=== PATIENT | female | born 1955 | race Caucasian/White ===

== ENCOUNTER 2017-01-30 05:30 | Inpatient (IN) | payer OTHER ==
[2017-01-30] VITALS (13 sets, daily range): BP systolic 98–127; BP diastolic 64–95; PULSE 64–101; RESP 10–20; O2SAT 93–100
[~2017-01-30] VITALS: Ht 149.9 cm; Wt 80.5 kg
[2017-01-30] MEDS: Lactated Ringer's 1,000 ML IV SCH ×6 (05:00→21:29)
[~2017-01-30 05:30] MED LIST: ADV100INH IH; ALBU8.5H2 INHALATION; AZU500 PO; CYCL10TA9 PO; CYCL1DRO OP; HYDR50TA3 PO; MAGN250T29 PO; METF500T4 PO; OXYB5TAB10 PO; POLY17PO6 PO; POTA99TA21 PO; TRAM50TA2 PO
[2017-01-30] MEDS ORDERED: Vancomycin 1,000mg/200 mL NS IV ONE (05:46)
[2017-01-30] MEDS ORDERED: CeFAZolin Inj 2 gm / 50mL D5W IV ONE (05:47)
[2017-01-30] MEDS ORDERED: tylenol PO (05:59)
[2017-01-30] MEDS ORDERED: CeFAZolin Inj 2 GM in Dextrose 5%-Pha MIX 50 ML IV SCH (06:00)
[2017-01-30] MEDS ORDERED: Bupivacaine Liposome 1.3% 20 mL Inj INFILTRATE ONE ×2 (06:00→08:16)
[2017-01-30] MEDS ORDERED: Vancomycin Inj 1,000 MG in IV Premix 1 EACH IV ONE (06:00)
[2017-01-30] MEDS ORDERED: Acetaminophen IV 1,000 MG in IV Premix 1 EACH IV ONE (06:00)
[2017-01-30] MEDS ORDERED: [UNRECOGNIZED DRUG - OTHER] PO (06:52)
[2017-01-30] MEDS ORDERED: NIAC500T7 PO (06:52)
[2017-01-30] MEDS ORDERED: GABA-502 PO (06:52)
[2017-01-30] MEDS ORDERED: CALC-140 PO (06:52)
[2017-01-30] MEDS ORDERED: valcyclovir PO (06:52)
[2017-01-30] MEDS ORDERED: MELO-253 PO (06:52)
[2017-01-30] MEDS ORDERED: OMEP40CA36 PO (06:52)
[2017-01-30] MEDS ORDERED: MULT-1018 PO (06:52)
[2017-01-30] MEDS ORDERED: LORA5TAB8 PO (06:52)
--- NOTE | 2017-01-30 07:17 | PCM.HPANE ---
Patient Data Surgeon Admitting Provider: Attending Provider:Jimenez Fitzgerald MD Primary Care Physician:Brissa Nicholson PA-C Other Provider:Killian Kearns Anesthesia Reason for Visit Right Hip Osteoarthritis RIGHT HIP OSTEOARTHRITIS Ht/WT & BMI Height (Feet): 4 Height (Inches): 11.00 Weight (Kilograms): 76.0 Body Mass Index 33.00 Allergies Coded Allergies: No Known Allergies (Unverified , 01/27/17) Past Anesthesia History Anesthesia History: Denies:: Anesthesia Reactions Diabetes History Hx Diabetes?: Yes Type of Diabetes: Type II Glycemic Control: Oral Medication Current Bedside Blood Glucose: 86 Medications Hypertension Medication: No Home Meds Incl Beta Martir: No Reported Medications Meloxicam 15 Mg Ycwikj09 Mg PO DAILY 30 Days Ref 0 01/30/17 [maeng Da] No Conflict Check PO prn 01/30/17 Multivitamin (Multi Vitamin Daily)1 Each Tablet1 Each PO DAILY 30 Days Ref 0 01/30/17 Niacin 500 Mg Jtlgcp345 Mg PO DAILY 30 Days 01/30/17 Loratadine ODT (Claritin ODT)5 Mg Tablet5 Mg PO DAILY 01/30/17 Calcium Carbonate/Vitamin D3 (Calcium + Vitamin D Tablet)1 Each Tablet1 Each PO BID 01/30/17 [valcyclovir] No Conflict Check1,000 Mg PO prn 01/30/17 Omeprazole 40 Mg Capsule.dr40 Mg PO DAILY Ref 0 01/30/17 Gabapentin 300 Mg Kbaefgo120 Mg PO HS Ref 0 01/30/17 [tylenol] No Conflict Check1,000 Mg PO TID 01/30/17 Potassium Gluconate (Potassium)99 Mg Tablet2 Tab PO BID 01/27/17 Magnesium Oxide (Magnesium)250 Mg Codvzh356 Mg PO BID 01/27/17 Cyclosporine (Restasis)1 Each Droperette1 Each OP DAILY 01/27/17 Polyethylene Glycol 3350 (Miralax)17 Gm Powd.pack17 Gm PO DAILY 01/27/17 Tramadol 50 Mg Sipttc03 Mg PO Q6H PRN For Pain Ref 0 01/26/17 Sulfasalazine 500 Mg Ahgbus906 Mg PO QID 30 Days Ref 0 01/26/17 Albuterol HFA (Proair HFA)8.5 Gm Hfa.aer.ad2 Puffs INHALATION Q4H PRN For Shortness of Breath #1 INHALER 01/26/17 Oxybutynin Chloride 5 Mg Tablet5 Mg PO BID Ref 0 01/26/17 Metformin 500 Mg Hfwczp820 Mg PO BID Ref 0 01/26/17 Hydrochlorothiazide 50 Mg Ucfgjt87 Mg PO DAILY 30 Days Ref 0 01/26/17 Cyclobenzaprine 10 Mg Ycufmr72 Mg PO TID PRN Spasm 01/26/17 Fluticasone/Salmeterol (Advair 100-50 Diskus)60 Puffs/Inh Disk1 Puffs IH BID #1 DISK Ref 0 01/26/17 History History of ENT Problems?: Yes Teeth Condition: Broken Teeth Other HEENT Pertinent History: pt reports that she has broken corner of her tooth off- Cardiovascular History: Denies:: AICD Abdominal Aortic Aneurism Atrial Fibrillation Heart Murmur Hypertension Irregular Heartbeat Pacemaker Hx of Respiratory Problem?: Yes Respiratory History: Positive for:: Asthma Use of Inhalers / NEBS Denies:: Oxygen Administration Use of C-PAP Machine Hx Neurologic Problems?: No Neurological History: Denies:: CVA Multiple Sclerosis Parkinson's Disease Seizures Hx of GI Problems?: Yes Gastrointestinal History: Positive for:: Gastroesphageal Reflux Hx of Problems?: No Hx Musculoskeletal Problems?: Yes Musculoskeletal History: Positive for:: Back Injury (hx of cervical and lumbar fusions) Fibromyalgia Hx of Psycho/Social Problems?: No Hx Surgeries?: Yes (bunion, cervical fusion, lumbar fusion) Hx Any Other Health Problems?: Yes Other History: Denies:: Cancer Thyroid Disease Hx Diabetes: YesBedside Blood Glucose: 86 Hx Alcohol Use: NoAlcoholic Drinks Per Day: rarelyHx Substance Use: NoHave You Smoked inLast 12 mo: No Stop/Bang Treated for Sleep Apnea?: No Do You Have a CPAP Machine?: No P-Blood Pressure: treated: Yes B- Body Mass Index > 35 kg/m2: No A- Age over 50: Yes N- Neck Large Circumference: No G- Gender Male: No DANNY Risk Assessment: Low Risk, <3 Yes Risk Assessment Category Category 1A: Patient has history of documented sleep apnea, and HAS NOT received any narcotic, sedative or anesthesia administration during this stay. Category 1B: Patient has history of documented sleep apnea, and HAS received any narcotic , sedative or anesthesia administration during this stay Category 2: Patient has SUSPECTED Obstructive Sleep Apnea, and HAS received any narcotic , sedative or anesthesia administration during this stay. Category 3: Patient has SUSPECTED Obstructive Sleep Apnea and HAS NOT received narcotic, sedative or anesthesia administration during this stay. Category 4: Outpatient in Procedural Areas with known sleep apnea or who screen positive for High Risk via the STOP/BANG questionnaire. Exam Exam Vital Signs Vital Signs Date Time Temp Pulse Resp B/P Pulse Ox O2 Delivery O2 Flow Rate FiO2 01/30/17 06:15 36.3 68 18 127/74 96 Room Air General Appearance: Oriented X3 HEENT/AIRWAY: MP 2 Lungs: Normal Air Movement Heart: Regular Rate/Rhythm Meds/Labs/Diagnostics Admission Meds Current Medications Lactated Ringer's (Lr) 1,000 ml @ 120 mls/hr Q8H20M IV Last administered on t 05:35; Start 01/30/17 at 05:00; Stop 01/30/17 at 13:19 Bedside Blood Glucose: 86 Plan Impression Patient chart reviewed, patient interviewed and anesthestic plan with risks, benefits, and alternatives discussed, and informed consent obtained. NPO Status: 10PM ASA Physical Status: ASA2 Mod Systemic Disease Anesthetic Plan: GA Bene/Risks/Altern/Consents: Yes HP Complete Prior to Induction: Yes Amadou Elkins MD Jan 30, 2017 07:17
[2017-01-30] MEDS ORDERED: Bacitracin 50,000 unit Inj IRRIGATION ONE (08:17)
[2017-01-30] MEDS ORDERED: diphenhydrAMINE 25 mg Capsule PO PRN (10:20)
[2017-01-30] MEDS ORDERED: Polyethylene Glycol (PEG) 17 Gm Powder PO PRN (10:20)
[2017-01-30] MEDS ORDERED: Magnesium Hydroxide 10 mL Oral Concentration PO PRN (10:20)
[2017-01-30] MEDS ORDERED: MetoCLOpramide 5 mg/mL 2 mL Inj IVPUSH PRN ×2 (10:20→10:30)
[2017-01-30] MEDS ORDERED: Sodium Biphos-Phos 133 mL Enema RECTAL PRN (10:20)
[2017-01-30] MEDS ORDERED: Ondansetron 2 mg/mL 2 mL Inj IVPUSH PRN ×2 (10:20→10:30)
[2017-01-30] MEDS ORDERED: Ketorolac 15 mg/mL Inj IVPUSH PRN (10:20)
[2017-01-30] MEDS ORDERED: Dexamethasone 4 mg/mL Inj IVPUSH PRN (10:30)
[2017-01-30] MEDS ORDERED: Lactated Ringer's 500 ML IV PRN (10:30)
[2017-01-30] MEDS ORDERED: HYDROmorphone 1 mg/mL Inj IVPUSH PRN (10:30)
[2017-01-30] MEDS ORDERED: Lactated Ringer's 1,000 ML IV SCH (10:30)
[2017-01-30] MEDS ORDERED: EPHEDrine Sulfate 50 mg/mL Inj IVPUSH PRN (10:30)
[2017-01-30] MEDS ORDERED: Phenylephrine 10,000 mCg/mL Inj IVPUSH PRN (10:30)
--- NOTE | 2017-01-30 10:37 | PCM.ORTHOP ---
Orthopedic Operative Report Date of Service: Jan 30, 2017 Pre Operative Diagnosis Right hip degenerative joint disease Post Operative Diagnosis Right hip degenerative joint disease Procedure Right total hip arthroplasty Surgeon Surgeon: Jimenez Fitzgerald MD Assistants: Vianey Thakur Indication for Procedure Right hip arthritis, stage IV Findings Grade 4 degenerative disease of the right hip Details of Procedure Hardware Used:De P[employer] Synthes Trilock Cup pinnacle 54mm cup 36X54 neutral liner Stem4 36+5 metal head 30mm cup screw Indications: Finesse Matos is a 61-year-old female who presents with DJD of the right hip. We discussed surgical risks including, but not limited to, bleeding, infection, damage to adjacent structures, need for further procedures , failure to heal and/or relieve pain, HW failure, loosening, and/or wear, change in limb length and/or alignment, fracture, dislocation, decreased strength, sensation and/or ROM, adverse reaction to implants and/or medicines, DVT, PE, IN, stroke, GI bleed, organ failure, loss or limb and/or life. Patient wished to proceed with surgery regardless of risks as stated. Procedure in Detail: The patient was identified in the holding area. The operative site was confirmed with the patient while awake and the right hip was marked. The patient was taken back to the operating room and placed on the operating table in the supine position. Time out was performed to confirm patient identity, operative procedure and operative site, and allergies. General anesthesia was administered by anesthesia personal. Patient was then positioned in the lateral decubitus position. All bony prominences were well padded. The right lower leg was prepped. Prophylactic antibiotics were administered. 1000mg of IV transexamic acid was given preop as well as prior to closure. The standard posterolateral incision was made over the posterior 1/3 femur and greater trochanter. This was brought down to the fascial layer. Once the fascial layer and gluteus maximum were incised, the bursa was taken down. An L-shaped capsulotomy was performed. The external rotators and posterior capsule was taken down as one layer. The femoral head was cut and was removed with the aid of a head extractor. Attention was then brought to the acetabulum. The acetabulum was then cleared of soft tissue. It was reamed sequentially to 53 at which time good bleeding was encountered and the trial fit was stable. A size 54 mm acetabular cup was the impacted in the position of 40 degrees of abduction and 20 degrees of anteversion. Attention was then moved to the femur. The medial aspect of the greater trochanter was cleared of soft tissue. The osteophytes on the anterior surface of the femoral neck were removed with a curved osteotome.The femur was prepared in the standard fashion and sequentially reamed and broached to a size 4. A size 4 broach was used to trial. It was found to be stable. A high offset neck and 36+5 mm head were trialed. The hip was reduced and stability was tested at 90 degrees of flexion, 40 abduction, 30 internal rotation as well at 70 flexion, 30 IR and no inpingement with extension and external rotation. Leg lengths were checked and found to be approximatey equal lengths. Stability was found to be satisfactory. Intraoperative x-rays were obtained and indicated good positioning of the acetabulum and femoral components. The femoral trials were removed and the size 4 femoral components were impacted in with a 36+5 mm femoral head. The hip was reduced. Exparel was used and injected into the soft tissues of multiple sites. The wound was irrigated and the capsular repair was done through bone tunnels with #5 Ethibond. The fascia was closed with #1 and 0 vicryl popoffs. The incision was closed with Stratofix and dressed with steristrips, xeroform, 4X4, ABD and dermapore tape. Abduction pillow was placed and the patient was transferred to a hospital bed. Patient was then awakened without complications and transferred to the recovery room in stable condition. SALES SERVICE PROMOTER SURGEON: During the operation, the services of physician assembler surgical garment were medically indicated and necessary to provide exposure of the operative site for the surgical procedure and to maintain the limb in a proper position to carry out the operation safely and efficiently. Without the qualified salon shampoo assistant being present, it would have extended the operative procedure and made the procedure technically more difficult to perform. Weight-bear as tolerated physical therapy. Dressing change in 2 days. Keep dressing clean dry and intact. Discharged on Xarelto 35 days, [place] and [place]. Keep abduction pillow on at all times when in bed for the next 4 weeks. Follow-up withme in 2 weeks with dressing change with new Steri-Strips. Follow-up with me in 6 weeks until fully mobilized. Patient may follow-up with me at 12 weeks and again at 6 months and 12 months postop. Please keep the affected extremity elevated when possible. Continue posterior hip cautions. You may use ice and/or heat as needed for comfort. All questions and concerns were addressed with patient/family. Please feel free to call with any further questions, comments, and/or concerns. Grafts, Implants: Implants-See Implant Record Complications There were no periprocedural complications identified. Condition Stable Anesthetic Administered: GA Catheters: None Output, Estimated Blood Loss: 50 Blood Admin during surgery: No Surgical Cast or Splint: Other Surgical Specimen Removed: No Specimen sent to Pathology: No copies to: Jimenez Fitzgerald MD, Christopher L MD Jan 30, 2017 10:37
[2017-01-30] MEDS: fentaNYL-PF 50 mCg/mL 2 mL Inj IVPUSH PRN ×2 (10:57→11:22)
--- NOTE | 2017-01-30 11:06 | DRSVH ---
PROCEDURE: X-RAY PELVIS W/LAT HIP (RT) ([id number]) INDICATIONS: s/p RTHA TECHNIQUE: AP pelvis and lateral view of the right hip acquired. COMPARISON: None. FINDINGS: Bones: Patient is status post right hip arthroplasty, with hardware components in expected positions . The hip joint appears congruent. The visualized bony structures appear intact. Partially visualiz ed lower lumbar fixation is present. Soft tissues: Overlying postoperative changes are noted. No suspicious soft tissue densities. IMPRESSION: Status post right hip arthroplasty as above. Dictated by: Naheed Ba M.D. on 01/30/2017 at 11:04 Approved by: Naheed Ba M.D. on 01/30/2017 at 11:05
--- NOTE | 2017-01-30 11:09 | PCM.ANEP1 ---
Post Anesthesia Phase 1 PACU Phase 1 Assessment Date of Service: Jan 30, 2017 Vital Signs Vital Signs Date Time Temp Pulse Resp B/P Pulse Ox O2 Delivery O2 Flow Rate FiO2 01/30/17 10:41 68 14 106/66 100 Nasal Cannula 2 01/30/17 10:35 70 13 110/70 100 Nasal Cannula 2 01/30/17 10:25 72 12 122/73 100 Nasal Cannula 2 01/30/17 10:20 36.1 80 10 118/70 99 Nasal Cannula 2 01/30/17 06:15 36.3 68 18 127/74 96 Room Air Anesthetic Administered: GA Level of Alertness: Awake, talking Pain: No Nausea or Vomiting: No Oxygen Delivery: Room Air Lungs: Normal Air Movement Amadou Elkins MD Jan 30, 2017 11:09
--- NOTE | 2017-01-30 11:10 | PCM.ANEP2 ---
Post Anesthesia Evaluation ASA/CMS Post Anesthesia VS in Patient's Normal Range?: Yes Resp Stable; Airway Patent?: Yes CV Function & Hydration Stable: Yes Mental Status Recovered?: Yes Pain control Satisfactory?: Yes N/V Control Satisfactory?: Yes Amadou Elkins MD Jan 30, 2017 11:10
[2017-01-30] MEDS ORDERED: HYDROmorphone 0.5 mg/0.5 mL iSecure Syringe IVPUSH PRN (11:30)
--- NOTE | 2017-01-30 11:33 | NUR ---
Arrived on Unit Patient arrived on floor in bed from PACU in stable condition. VSS. Patient reported 5/10 hip pain. 2 tabs of Vicodin given. Denies nausea at this time. Dressing CDI. Q 2 hour turn from back to operative side only. Pillow between legs. Ramirez patent and draining to gravity. Patient orientated to call light, bed, and phone. Sister at bedside. Call light and tray table within reach. Will continue to monitor patient hourly.
[2017-01-30] MEDS ORDERED: Ondansetron 8 mg ODT Tablet PO PRN (11:50)
[2017-01-30] MEDS: HYDROcodone-APAP 5-325 mg Tablet PO PRN ×3 (12:58→20:53)
[2017-01-30] MEDS ORDERED: Propofol 10,000 mCg/mL 20 mL Inj ONE (13:24)
[2017-01-30] MEDS ORDERED: Rocuronium 10 mg/mL 5 mL Inj ONE (13:24)
[2017-01-30] MEDS ORDERED: MetoCLOpramide 5 mg/mL 2 mL Inj ONE (13:24)
[2017-01-30] MEDS ORDERED: Ondansetron 2 mg/mL 2 mL Inj ONE (13:24)
[2017-01-30] MEDS ORDERED: HYDROmorphone 2 mg/mL Inj ONE (13:24)
[2017-01-30] MEDS ORDERED: CeFAZolin Inj 2 GM in IV Premix 1 EACH IV SCH (15:30)
[2017-01-30] MEDS: CeFAZolin Inj 2 GM in IV Premix 1 EACH IV SCH ×2 (16:00→23:30)
--- NOTE | 2017-01-30 16:10 | NUR ---
Evaluation completed. Please go to "Notes" then click on "Assessments and Notes" (bottom left corner of screen). Then select appropriate discipline tab on top of screen.
[2017-01-30] MEDS: Senna-Docusate 8.6-50 mg Tablet PO SCH (20:52)
[2017-01-31] MEDS: HYDROcodone-APAP 5-325 mg Tablet PO PRN ×4 (02:30→18:42)
[2017-01-31 05:18] VITALS: BP 106/63; PULSE 86; RESP 18; O2SAT 95
--- NOTE | 2017-01-31 05:23 | NUR ---
Pain/Activity Pt reports pain 8/10, rec'd PRN norco with + effects. reported 5/10 which is tolerable. Pt has wedge between legs and feet on towels as they were hurting from pressure on bed. Pt remained supine this shift, refused to rotate to surgical side. She was not up and not ambulating, therefore eisenberg cath was not D/C'd. She states she was in too much pain with Pt that all she wants to do is sleep.
[2017-01-31 05:41] LABS: BASOPHILS % (AUTO) 0.4 % (0-3); EOSINOPHILS % (AUTO) 0.4 % (0-5); MONOCYTES % (AUTO) 8.3 % (4-12); Mean Corpuscular Hemoglobin 30.2 pg (27.0-35.0); Mean Corpuscular Volume 90.6 fL (81-100); NEUTROPHILS % (AUTO) 68.6 % (40-74); Platelet Count 206 bil/L (150-400)
--- NOTE | 2017-01-31 07:03 | PCM.PNORTH ---
Subjective Date of Service: Jan 31, 2017 Visit Information: Reason for Visit Right Hip Osteoarthritis Surgery/Surgery Date R SANGEETA 01/28/17 Post-Op Day # Date of Admission: Jan 30, 2017 at 11:02 Hospital Day # Subjective Found patient awake and alert and pleasant. No complaints of pain at this time. Discussed participation with formal therapy today and patient is anxious to begin gait training. Patient discussed several medications that she has not received yet and we have investigated and found that her marker had not been signed for transition onto her med list. I have informed her that this is been done and we will attempt to get her her regular medications as soon as possible. Encouraged patient to participate fully with formal therapy and discussed that this is an elective surgery and [facility] would not be an option unless it was self-pay and that she will likely discharge to home on postop day 2 or 3. Patient is aware of this and states she will participate in therapy. Postop General: No Complaints, No Shortness of Breath, No Chest Pain Pain Management: PO Objective Exam Objective Alert and oriented 3 and pleasant. Interoperative dressings clean dry and intact. Toe wiggle and sensation intact at right lower extremity distally. Calf and thigh are soft and nontender. Ramirez catheter is present and working SCDs are present and working bilaterally Thigh-high ARMAND hose are present bilaterally. Vital Signs and I/O Vital Sign - Last Date Time Temp Pulse Resp B/P Pulse Ox O2 Delivery O2 Flow Rate FiO2 01/31/17 05:18 36.6 86 18 106/63 95 Room Air 01/30/17 11:25 2 Intake and Output 01/30/17 01/30/17 01/31/17 Cumulative From/Thru 15:00 23:00 07:00 01/26/17 12:35 - 01/31/17 05:21 Intake Total 1770 ml 1224 ml 2012 ml 5006 ml Output Total 960 ml 700 ml 2000 ml 3660 ml Balance 810 ml 524 ml 12 ml 1346 ml Intake Oral 820 ml 1200 ml 2020 ml IV Total 1770 ml 404 ml 812 ml 2986 ml Output Urine Total 810 ml 700 ml 2000 ml 3510 ml Estimated Blood Loss 150 ml 150 ml # Bowel Movements 0 0 Lab & Micro Results Laboratory Tests Test 01/31/17 05:09 White Blood Count 8.5th/mm3 (3.8-10.1) Red Blood Count 3.51mil/mm3 (3.90-5.20) Hemoglobin 10.6g/dL (12.0-15.6) Hematocrit 31.8% (35.0-46.0) Mean Corpuscular Volume 90.6fL (81-100) Mean Corpuscular Hemoglobin 30.2pg (27.0-35.0) Mean Corpuscular Hemoglobin Concent 33.3% (32.0-37.0) Red Cell Distribution Width 12.8% (12.3-15.4) Platelet Count 206bil/L (150-400) Neutrophils (%) (Auto) 68.6% (40-74) Lymphocytes (%) (Auto) 21.8% (14-46) Monocytes (%) (Auto) 8.3% (4-12) Eosinophils (%) (Auto) 0.4% (0-5) Basophils (%) (Auto) 0.4% (0-3) Result Diagram: 01/31/17 0509 General Appearance: Alert, Oriented X3, Cooperative, No Acute Distress Extremities: No Compartment Syndrom Noted, Thigh & Calf Soft/Nontender Postop Sensory Motor: Distal Motor Intact, Movement in Toes, Distal Sensation Intact Activity: Activity per PT, Ambulate with PT (weightbearing as tolerated on the right lower extremity using front wheeled walker. Posterior hip precautions. Abduction pillow should be in place while patient is in bed for the next 4 weeks.) Catheters: Urethral 2 Way Ramirez Assessment & Plan Impression Patient is a 61-year-old female who is undergone an elective right total hip arthroplasty performed on 01/30/[address] Jimenez Fitzgerald. Patient is alert and oriented and anxious to begin therapy with plans for discharge to home. Problems: Plan Postop day #1 from an elective right total hip arthroplasty performed on [address] Jimenez Fitzgerald Weightbearing as tolerated on the right lower extremity using front wheeled walker. Posterior hip precautions are in place. Abduction pillow should be used while in bed for the next 4 weeks postop. Continue formal physical therapy for mobility, gait and safety. Continue by mouth pain medications as needed. Continue Xarelto 10 mg daily 35 days postop for DVT prophylaxis. Bilateral thigh-high ARMAND hose and SCDs are placed. Interoperative dressing will be changed on postop day #2. Note: Patient home medication list had not been approved nor signed and was discovered by myself when patient complained regarding not receiving some of her regular home medications. This was reviewed by myself with pharmacy and her home med list has been reinstated. Nursing: Ramirez should be discontinued postop day #1 after first physical therapy session. Follow-up in 2 weeks at [facility] [place] [facility] with Dr. Jimenez Fitzgerald for suture removal, Steri-Strip placement and wound check. Follow-up in 6 weeks at [facility] [place] [facility] with Dr. Jimenez Fitzgerald with AP pelvis and right crosstable lateral hip x-rays on arrival. Anticipate discharge to home with family as caregivers on or before postop day # 3. VTE Prophylaxis: SCDs (bilateral), ARMAND Hose (bilateral), Other (Xarelto 10mg daily 35 days postop for DVT prophylaxis) Wellington Peralta PA-C Jan 31, 2017 07:03
[2017-01-31] MEDS: Pt Own Med->RESTASIS BOTH_EYES SCH (08:30)
[2017-01-31] MEDS: Senna-Docusate 8.6-50 mg Tablet PO SCH ×2 (08:53→21:33)
[2017-01-31] MEDS: Fluticasone-Salmeterol 100-50 Inhaler INHALATION SCH ×3 (10:02→21:33)
[2017-01-31] MEDS ORDERED: Albuterol 2.5 mg/3 mL Inhalation Solution NEB PRN (10:05)
[2017-01-31] MEDS: Lactated Ringer's 1,000 ML IV SCH ×2 (11:16→23:46)
[2017-01-31] MEDS: Polyethylene Glycol (PEG) 17 Gm Powder PO SCH (12:30)
[2017-01-31] MEDS: Tolterodine ER 2 mg ER24 Capsule PO SCH (12:32)
[2017-01-31 12:36] VITALS: BP 104/66; PULSE 89; RESP 18; O2SAT 97
[2017-01-31] MEDS: Sulfasalzine 500 mg Tablet PO SCH ×3 (12:38→21:33)
[2017-01-31] MEDS: Pantoprazole 40 mg ER24 Tablet PO SCH (12:38)
--- NOTE | 2017-01-31 16:48 | NUR ---
Social Work Note: Screen Note Data & Assessment: EMR reviewed. sHE is a 61 year old female admitted on 01/30/17 for right hip osteo arthritis. Pt has [employer] for insurance coverage and sees Brissa Nicholson PA-C for primary care. Pt lives with family and is independent at baseline. PT is recommending SNF upon discharge. SW choiced patient for SNF and patient chose [facility]. SW will choice patient for HH choice and alternate option. SW to continue to follow if any needs arise. Plan: Patient will discharge home with HH vs. SNF. SW to continue to follow if any needs arise. Bhavya Taylor, SILVESTRE, ACM
[2017-01-31 17:05] VITALS: BP 111/68; PULSE 92; RESP 17; O2SAT 98
--- NOTE | 2017-01-31 18:36 | PCM.PNORTH ---
Subjective Date of Service: Jan 31, 2017 Visit Information: Reason for Visit Right Hip Osteoarthritis Surgery/Surgery Date R SANGEETA 01/28/17 Post-Op Day # Date of Admission: Jan 30, 2017 at 11:02 Hospital Day # Subjective Finesse is doing well after RTHA yesterday. She reports that her pain is much improved compared to last night. She has been OOB with PT/OT and has been wearing her abduction pillow while in bed. She has eating today and tolerating PO and passing flatus. She still has her eisenberg in today. Postop General: No Complaints, No Shortness of Breath, No Chest Pain Pain Management: PO Objective Exam Objective Gen: NAD, A+OX3 unlabored breathing bilaterally abd: soft NTND incision: dsg c/d/i ext: 03/03 ehl/fhl/ta/gs SILT dpn/spn/tn distributions 2+ pulses neg homans, no calf tenderness Vital Signs and I/O Vital Sign - Last Date Time Temp Pulse Resp B/P Pulse Ox O2 Delivery O2 Flow Rate FiO2 01/31/17 17:05 37.1 92 17 111/68 98 Room Air 01/30/17 11:25 2 Intake and Output 01/30/17 01/30/17 01/31/17 Cumulative From/Thru 15:00 23:00 07:00 01/26/17 12:35 - 01/31/17 05:21 Intake Total 1770 ml 1224 ml 2012 ml 5006 ml Output Total 960 ml 700 ml 2000 ml 3660 ml Balance 810 ml 524 ml 12 ml 1346 ml Intake Oral 820 ml 1200 ml 2020 ml IV Total 1770 ml 404 ml 812 ml 2986 ml Output Urine Total 810 ml 700 ml 2000 ml 3510 ml Estimated Blood Loss 150 ml 150 ml # Bowel Movements 0 0 Lab & Micro Results Laboratory Tests Test 01/31/17 05:09 White Blood Count 8.5th/mm3 (3.8-10.1) Red Blood Count 3.51mil/mm3 (3.90-5.20) Hemoglobin 10.6g/dL (12.0-15.6) Hematocrit 31.8% (35.0-46.0) Mean Corpuscular Volume 90.6fL (81-100) Mean Corpuscular Hemoglobin 30.2pg (27.0-35.0) Mean Corpuscular Hemoglobin Concent 33.3% (32.0-37.0) Red Cell Distribution Width 12.8% (12.3-15.4) Platelet Count 206bil/L (150-400) Neutrophils (%) (Auto) 68.6% (40-74) Lymphocytes (%) (Auto) 21.8% (14-46) Monocytes (%) (Auto) 8.3% (4-12) Eosinophils (%) (Auto) 0.4% (0-5) Basophils (%) (Auto) 0.4% (0-3) Result Diagram: 01/31/17 0509 Activity: Activity per PT, Ambulate with PT (weightbearing as tolerated on the right lower extremity using front wheeled walker. Posterior hip precautions. Abduction pillow should be in place while patient is in bed for the next 4 weeks.) Catheters: Urethral 2 Way Eisenberg Assessment & Plan Impression 61 yo female POD #1 s/p RTHA Problems: Plan WBAT with PT/OT and assistive device as needed posterior hip precautions hip abduction pillow at all times when in bed and asleep continue pain meds, wean IV and transition to PO ARMAND's/SCD + Xarelto for DVT prophylaxis dressing change tomorrow keep dsg c/d/i d/c eisenberg today when OOB, no later than POD # 2 please call with questions VTE Prophylaxis: SCDs (bilateral), ARMAND Hose (bilateral), Other (Xarelto 10mg daily 35 days postop for DVT prophylaxis) Jimenez Fitzgerald MD Jan 31, 2017 18:36
--- NOTE | 2017-01-31 19:08 | NUR ---
Pain Management Patient given 2 tabs of [place] every 4 hours and Flexeril every 8 hours to manage pain. Patient denied nausea this shift. Patient up to chair for meals with SBA?FWW. Patient refuses every 2 Q turn to operative site. Patient educated repositioning self. Call light and tray table within reach. Will continue to monitor patient hourly.
[2017-01-31 20:40] VITALS: BP 106/66; PULSE 98; RESP 18; O2SAT 96
[2017-02-01 00:40] VITALS: BP 104/66; PULSE 93; RESP 20; O2SAT 96
--- NOTE | 2017-02-01 03:52 | NUR ---
Sleep Patient states she really needs sleep and not to wake her for pain medication. Patient Sleeping through most of night. [place] and Flexeril for pain /. Abduction pillow in place. Scd's on. Vitals stable.
[2017-02-01 05:30] VITALS: BP 101/64; PULSE 99; RESP 18; O2SAT 95
[2017-02-01] MEDS: Pantoprazole 40 mg ER24 Tablet PO SCH (06:27)
[2017-02-01] MEDS: Sulfasalzine 500 mg Tablet PO SCH ×4 (06:27→21:41)
--- NOTE | 2017-02-01 07:44 | PCM.PNORTH ---
Subjective Date of Service: Feb 01, 2017 Visit Information: Reason for Visit Right Hip Osteoarthritis Surgery/Surgery Date R SANGEETA 01/28/17 Post-Op Day # Date of Admission: Jan 30, 2017 at 11:02 Hospital Day # Subjective Patient awake and alert this morning and sitting up in bed. No complaints of pain at this time. Patient was well positioned with abduction pillow in place. Discussed her participation yesterday with formal physical therapy and encouraged patient to continue her good effort today in anticipation of discharging to home either today or tomorrow. Interoperative dressing was changed today and wounds are in good condition. Dr. Fitzgerald by during running visit today and encouraged patient. Postop General: No Complaints, No Shortness of Breath, No Chest Pain, Good Appetite Pain Management: PO Objective Exam Objective Alert and oriented 3 and pleasant. Interoperative dressing clean dry and intact. Interoperative dressing is removed and changed to Xeroform with island-type dressings with ends trimmed for ventilation. Surgical wound is in good condition with little to no drainage. Calf and thigh are soft and nontender. Toe wiggle and sensation are intact at right lower extremity distally. Ramirez is absent. Bilateral ARMAND hose and bilateral SCDs are in place. Gait 50 feet yesterday on 01/31/2017 with physical therapy. Recommendation for SNF versus home with home health. Vital Signs and I/O Vital Sign - Last Date Time Temp Pulse Resp B/P Pulse Ox O2 Delivery O2 Flow Rate FiO2 02/01/17 05:30 37.4 99 18 101/64 95 Room Air 01/30/17 11:25 2 Intake and Output 01/31/17 01/31/17 02/01/17 Cumulative From/Thru 15:00 23:00 07:00 01/26/17 12:35 - 01/31/17 19:11 Intake Total 1820 ml 6826 ml Output Total 3500 ml 7160 ml Balance -1680 ml -334 ml Intake Oral 1820 ml 3840 ml IV Total 2986 ml Output Urine Total 3500 ml 7010 ml Estimated Blood Loss 150 ml # Bowel Movements 0 Result Diagram: 01/31/17 0509 General Appearance: Alert, Oriented X3, Cooperative, No Acute Distress Extremities: No Compartment Syndrom Noted, Thigh & Calf Soft/Nontender Postop Sensory Motor: Distal Motor Intact, Movement in Toes, Distal Sensation Intact Activity: Activity per PT, Ambulate with PT (weightbearing as tolerated on the right lower extremity using front wheeled walker. Posterior hip precautions. Abduction pillow should be in place while patient is in bed for the next 4 weeks.) Catheters: None Assessment & Plan Plan Postop day #2 from an elective right total hip arthroplasty performed on [address] Jimenez Fitzgerald Weightbearing as tolerated on the right lower extremity using front wheeled walker. Posterior hip precautions are in place. Abduction pillow should be used while in bed for the next 4 weeks postop. Continue formal physical therapy for mobility, gait and safety. Continue by mouth pain medications only for pain control at this time.. Continue Xarelto 10 mg daily 35 days postop for DVT prophylaxis. Bilateral thigh-high ARMAND hose and SCDs are placed. Interoperative dressing is changed this morning to island-type dressings and wound is in good condition. Follow-up in 2 weeks at [facility] orthopedic clinic with Dr. Jimenez Fitzgerald for suture removal, Steri-Strip placement and wound check. Follow-up in 6 weeks at [facility] orthopedic clinic with Dr. Jimenez Fitzgerald with AP pelvis and right crosstable lateral hip x-rays on arrival. Anticipate discharge to home with family as caregivers on or before postop day # 3. Possible home health needs to be determined. VTE Prophylaxis: SCDs (bilateral), ARMAND Hose (bilateral), Other (Xarelto 10mg daily 35 days postop for DVT prophylaxis) Wellington Peralta PA-C Feb 01, 2017 07:44
[2017-02-01] MEDS: HYDROcodone-APAP 5-325 mg Tablet PO PRN ×5 (08:25→23:10)
[2017-02-01] MEDS: Pt Own Med->RESTASIS BOTH_EYES SCH (08:30)
[2017-02-01] MEDS ORDERED: Polyethylene Glycol (PEG) 17 Gm Powder PO SCH (08:30)
[2017-02-01] MEDS: Senna-Docusate 8.6-50 mg Tablet PO SCH ×2 (08:50→20:30)
[2017-02-01] MEDS: Fluticasone-Salmeterol 100-50 Inhaler INHALATION SCH ×2 (08:52→20:30)
[2017-02-01] MEDS: Tolterodine ER 2 mg ER24 Capsule PO SCH (08:53)
[2017-02-01] MEDS: Polyethylene Glycol (PEG) 17 Gm Powder PO SCH (08:53)
--- NOTE | 2017-02-01 10:21 | PCM.PNORTH ---
Subjective Date of Service: Feb 01, 2017 Visit Information: Reason for Visit Right Hip Osteoarthritis Surgery/Surgery Date R SANGEETA 01/28/17 Post-Op Day # Date of Admission: Jan 30, 2017 at 11:02 Hospital Day # Subjective Finesse Matos is status post RTHA. She has been ambulating with PT and reports that her pain is much better today. Her Ramirez was removed earlier and she has been passing flatus and tolerating by mouth. She denies any fever or chills, nausea, vomiting, shortness of breath, chest pain or calf pain Postop General: No Complaints, No Shortness of Breath, No Chest Pain, Good Appetite Pain Management: PO Objective Exam Objective CONST: WD,WN, NAD, A+OX3 OCULAR: EOMI, no conjunctivitis/icterus ENT: no deformities, scars or lesions CARDIAC: Pulse is regular. No cyanosis,clubbing,edema RESP: regular,unlabored MSK: normal light touch SPN/DPN/TN distributions. 5/5 DF/PF/Inv/Ev, 2+ DP right HIP -incision c/d/i, no drainage neg bhargavi's Vital Signs and I/O Vital Sign - Last Date Time Temp Pulse Resp B/P Pulse Ox O2 Delivery O2 Flow Rate FiO2 02/01/17 05:30 37.4 99 18 101/64 95 Room Air 01/30/17 11:25 2 Intake and Output 01/31/17 01/31/17 02/01/17 Cumulative From/Thru 15:00 23:00 07:00 01/26/17 12:35 - 01/31/17 19:11 Intake Total 1820 ml 6826 ml Output Total 3500 ml 7160 ml Balance -1680 ml -334 ml Intake Oral 1820 ml 3840 ml IV Total 2986 ml Output Urine Total 3500 ml 7010 ml Estimated Blood Loss 150 ml # Bowel Movements 0 Result Diagram: 01/31/17 0509 Activity: Activity per PT, Ambulate with PT (weightbearing as tolerated on the right lower extremity using front wheeled walker. Posterior hip precautions. Abduction pillow should be in place while patient is in bed for the next 4 weeks.) Catheters: None Assessment & Plan Impression 61-year-old female status post right total hip arthroplasty postop day #2 Problems: Plan Weight-bear as tolerated with assistance posterior hip precautions abduction pillow X 6 weeks PT/OT today Wean IV pain meds, continue oral pain meds Dressing changed today DVT prophylaxis with ARMAND stockings, SCDs, Xarelto encourage PO Dispo planning pending Please call with questions VTE Prophylaxis: SCDs (bilateral), ARMAND Hose (bilateral), Other (Xarelto 10mg daily 35 days postop for DVT prophylaxis) Jimenez Fitzgerald MD Feb 01, 2017 10:21
[2017-02-01] MEDS: Lactated Ringer's 1,000 ML IV SCH (12:16)
[2017-02-01 14:22] VITALS: BP 98/64; PULSE 99; RESP 20; O2SAT 97
--- NOTE | 2017-02-01 15:33 | NUR ---
low grade fever 100.1 F pt feels fine, no cough/congestion, encouraging mobility, will continue to monitor
--- NOTE | 2017-02-01 16:21 | NUR ---
Social Work - Continued Discharge Planning Data: EMR reviewed. Pt is on day 2 of hospitalization for right hip osteoarthritis per H&P. PT is recommending SNF upon discharge. Pt does not qualify for SNF because pt had elective surgery and insurance will not cover SNF. SW choiced patient for HH and pt chose [facility]. SW sent referral to [facility]. Face to face is in file. SW to continue to follow if any needs arise. Assessment: Pt who would benefit from HH. Plan: Patient will discharge home with [facility]. SW to continue to follow if any needs arise. THAO Kraft
[2017-02-01 19:52] VITALS: BP 114/68; PULSE 98; RESP 20; O2SAT 98
[2017-02-02] MEDS: Lactated Ringer's 1,000 ML IV SCH ×2 (00:46→13:16)
--- NOTE | 2017-02-02 01:54 | NUR ---
Ambulation Patient is showing improvement in her ability to get up to use bedside commode. One person assist with FFW. Patient's pain 5/10, is managed well with 2 Radiant. Patient voiding well and had BM this shift. Vitals stable. room air. Saline locked.
[2017-02-02 04:25] VITALS: BP 100/63; PULSE 81; RESP 18; O2SAT 96
[2017-02-02] MEDS: Pantoprazole 40 mg ER24 Tablet PO SCH (06:15)
[2017-02-02] MEDS: Sulfasalzine 500 mg Tablet PO SCH ×4 (06:15→21:50)
--- NOTE | 2017-02-02 07:40 | PCM.PNORTH ---
Subjective Date of Service: Feb 02, 2017 Visit Information: Reason for Visit Right Hip Osteoarthritis Surgery/Surgery Date R SANGEETA 01/28/17 Post-Op Day # Date of Admission: Jan 30, 2017 at 11:02 Hospital Day # Subjective Found patient awake and alert supine in bed and while positioned with an abduction wedge in place. No complaints pain at this time. Discussed likely discharged today to home with home health and patient is aware of this. Patient states that her parents have larger car and cannot transport her and that she would be staying with her sister whom can give her a as needed. Patient is concerned with being able to rise and exited her bed. I have asked her to redouble her efforts regarding this with formal physical therapy today prior to discharge. Postop General: No Complaints, No Shortness of Breath, No Chest Pain, Good Appetite Pain Management: PO Objective Exam Objective Alert and oriented 3 and pleasant. Interoperative dressing is clean dry and intact. Total needle and sensation are intact at right lower extremity distally Calf and thigh are soft and nontender. Ramirez is absent. Bilateral SCDs and ARMAND hose are in place. Abduction wedge is in place. Vital Signs and I/O Vital Sign - Last Date Time Temp Pulse Resp B/P Pulse Ox O2 Delivery O2 Flow Rate FiO2 02/02/17 04:25 36.7 81 18 100/63 96 Room Air 01/30/17 11:25 2 Intake and Output 02/01/17 02/01/17 02/02/17 Cumulative From/Thru 15:00 23:00 07:00 01/26/17 12:35 - 02/02/17 06:08 Intake Total 1200 ml 840 ml 1200 ml 02027 ml Output Total 1950 ml 620 ml 650 ml 01788 ml Balance -750 ml 220 ml 550 ml -314 ml Intake Oral 1200 ml 840 ml 1200 ml 7080 ml IV Total 2986 ml Output Urine Total 1950 ml 620 ml 650 ml 36020 ml Estimated Blood Loss 150 ml # Voids 1 2 3 # Bowel Movements 0 1 1 2 Result Diagram: 01/31/17 0509 General Appearance: Alert, Oriented X3, Cooperative, No Acute Distress Extremities: No Compartment Syndrom Noted, Thigh & Calf Soft/Nontender Postop Sensory Motor: Distal Motor Intact, Movement in Toes, Distal Sensation Intact Activity: Activity per PT, Ambulate with PT (weightbearing as tolerated on the right lower extremity using front wheeled walker. Posterior hip precautions. Abduction pillow should be in place while patient is in bed for the next 4 weeks.) Catheters: None Assessment & Plan Impression Patient is a 61-year-old female who has undergone a right total hip arthroplasty electively on 01/30/2017. She has increased her mobility and ability since her surgery but remains tentative regarding exiting her bed appropriately based on her hip precautions. Problems: Plan Postop day #3 from an elective right total hip arthroplasty performed on [address] Jimenez Fitzgerald Weightbearing as tolerated on the right lower extremity using front wheeled walker. Posterior hip precautions are in place. Abduction pillow should be used while in bed for the next 6 weeks postop. Abduction pillow use timeframe has been adjusted by Dr. Britton in his progress note dated 02/01/2017. Continue formal physical therapy for mobility, gait and safety. Continue by mouth pain medications only for pain control at this time.. Continue Xarelto 10 mg daily 35 days postop for DVT prophylaxis. Bilateral thigh-high ARMAND hose and SCDs are placed. Abduction wedge is in place. Intraoperative dressings clean dry and intact. Follow-up in 2 weeks at [facility] orthopedic clinic with Dr. Jimenez Fitzgerald for suture removal, Steri-Strip placement and wound check. Follow-up in 6 weeks at [facility] orthopedic clinic with Dr. Jimenez Fitzgerald with AP pelvis and right crosstable lateral hip x-rays on arrival. We will consult with social worker assistant prior to discharge. Anticipate discharge to home with home health and family as caregivers today on postop day #3, 02/02/2017. Spoke with social worker assistant today at some length regarding patient's discharge. Patient does have extenuating physical issues regarding lack of strength in her upper extremities and significant arthritic changes in her joints which make it difficult for her to exit her bed. Patient as well informs us today that her sister has some limited mobility in her upper extremities which may limit her ability to provide guarding and a cyst on gait and transfers. The plan at this point will be to discharge with home health and ideally with home health PT 3 times a week and also home health nursing and/or bath aide. This is yet to be completely determined but is in process. I am informed by physical therapy that utilization review department may be looking into achieving the opportunity to discharge patient to a [place] [facility] facility and this is also undecided but in process. Based on the patient's performance with physical therapy at this point, and her only sure option which is discharged to home with home health, I believe it is reasonable to keep patient one additional night to allow physical therapy to achieve more visits and ideally prepare patient better for safe discharge and provide time for some of the above- mentioned options to be worked through.. VTE Prophylaxis: SCDs (bilateral), ARMAND Hose (bilateral), Other (Xarelto 10mg daily 35 days postop for DVT prophylaxis) Wellington Peralta PA-C Feb 02, 2017 07:40
[2017-02-02] MEDS: Pt Own Med->RESTASIS BOTH_EYES SCH (08:30)
[2017-02-02] MEDS: Fluticasone-Salmeterol 100-50 Inhaler INHALATION SCH ×3 (08:30→20:30)
[2017-02-02] MEDS: HYDROcodone-APAP 5-325 mg Tablet PO PRN ×4 (09:05→20:12)
[2017-02-02] MEDS: Tolterodine ER 2 mg ER24 Capsule PO SCH (10:10)
--- NOTE | 2017-02-02 10:13 | NUR ---
Social Work- Readiness for Discharge Data: EMR reviewed. Pt is on day 3 of hospitalization for right hip osteoarthritis per H&P. PT is recommending SNF upon discharge. PT to see pt again today prior to discharge. OT is recommending SNF at discharge. Pt's insurance is [employer]. Due to pt's payor, which is a managed Medicaid plan, there is typically no PT/OT coverage. SW spoke with pt at bedside regarding discharge plan and SNF options. SNF choice list provided. Pt is aware of limitations of payor coverage, states "they are not going to cover me to go to SNF, but you can try." Pt chose [facility] as SNF choice, [facility] Specialist made referral to aisha Merchant at [facility]. Pt's sister and brother in law to be pt's caregivers/provide assistance after discharge. SW made referral to [facility] PT OT and bath aide per Evy RUTH. Face to face signed. Pt understanding and agreeable to discharge plan. SW will refer to physician when pt is ready for discharge based on no SNF option. SW to continue to follow if any needs arise. Assessment: Pt who would benefit from [facility] PT OT and bath aide. Plan: PT/OT recommending SNF. Due to pt's payor, which is a managed Medicaid plan, there is typically no PT/OT coverage. Pt aware of this. Referral made to [facility] faxed. Patient will discharge home with [facility] PT OT and sabas aide, sister to transport via POV. SW will refer to physician when pt is ready for discharge based on no SNF option. SW will continue to follow. THAO Zafar Addendum: 02/02/17 at 1329 by ADONIS LAURA UR Specialist spoke with aisha Merchant at [facility], who is sending pt's clinicals for [employer] authorization. SW and SALIMA RN spoke with pt at bedside regarding discharge plan and pending insurance authorization for [employer]. Authorizations may take up to 24 hours after submission. Pt aware that [employer] could decline authorization tomorrow. Pt states that a hospital bed would be helpful to her after discharge, SW explained out of pocket costs. SW to look into any possibility of hospital bed, but pt aware and agreeable to potential of SNF denial, discharge home with [facility] PT OT. SW will continue to follow. Plan: Pt may discharge to [facility] SNF pending [employer] authorization. SW to look into any possibility of a hospital bed for pt at home. THAO Zafar
[2017-02-02] MEDS: Senna-Docusate 8.6-50 mg Tablet PO SCH ×2 (10:19→20:30)
[2017-02-02] MEDS: Polyethylene Glycol (PEG) 17 Gm Powder PO SCH (10:20)
--- NOTE | 2017-02-02 10:29 | NUR ---
TT Mayur at [facility] re:potential admit today. If pt's meets criteria it could take up to 24 hours for [employer] to approve. Mayur agreed to review pt right away. Faxed clinicals to Mayur at [phone]
--- NOTE | 2017-02-02 12:21 | PCM.PNORTH ---
Subjective Date of Service: Feb 02, 2017 Visit Information: Reason for Visit Right Hip Osteoarthritis Surgery/Surgery Date R SANGEETA 01/28/17 Post-Op Day # Date of Admission: Jan 30, 2017 at 11:02 Hospital Day # Subjective Finesse Matos is status post RTHA. She has been ambulating with PT and reports that her pain is improved today. She has been flatus and tolerating by mouth. She denies any fever or chills, nausea, vomiting, shortness of breath, chest pain or calf pain Postop General: No Complaints, No Shortness of Breath, No Chest Pain, Good Appetite Pain Management: PO Objective Exam Objective CONST: WD,WN, NAD, A+OX3 OCULAR: EOMI, no conjunctivitis/icterus ENT: no deformities, scars or lesions CARDIAC: Pulse is regular. No cyanosis,clubbing,edema RESP: regular,unlabored MSK: normal light touch SPN/DPN/TN distributions. 5/5 DF/PF/Inv/Ev, 2+ DP right HIP -incision c/d/i, no drainage neg bhargavi's Vital Signs and I/O Vital Sign - Last Date Time Temp Pulse Resp B/P Pulse Ox O2 Delivery O2 Flow Rate FiO2 02/02/17 10:31 Room Air 02/02/17 04:25 36.7 81 18 100/63 96 01/30/17 11:25 2 Intake and Output 02/01/17 02/01/17 02/02/17 Cumulative From/Thru 15:00 23:00 07:00 01/26/17 12:35 - 02/02/17 06:08 Intake Total 1200 ml 840 ml 1200 ml 91829 ml Output Total 1950 ml 620 ml 650 ml 54760 ml Balance -750 ml 220 ml 550 ml -314 ml Intake Oral 1200 ml 840 ml 1200 ml 7080 ml IV Total 2986 ml Output Urine Total 1950 ml 620 ml 650 ml 91708 ml Estimated Blood Loss 150 ml # Voids 1 2 3 # Bowel Movements 0 1 1 2 Result Diagram: 01/31/17 0509 Activity: Activity per PT, Ambulate with PT (weightbearing as tolerated on the right lower extremity using front wheeled walker. Posterior hip precautions. Abduction pillow should be in place while patient is in bed for the next 4 weeks.) Catheters: None Assessment & Plan Impression 61-year-old female status post right total hip arthroplasty postop day #3 Problems: Plan Weight-bear as tolerated with assistance posterior hip precautions abduction pillow X 6 weeks PT/OT today Wean IV pain meds, continue oral pain meds Dressing changed today DVT prophylaxis with ARMAND stockings, SCDs, Xarelto encourage PO Dispo planning pending- possible snf tomorrow Please call with questions VTE Prophylaxis: SCDs (bilateral), ARMAND Hose (bilateral), Other (Xarelto 10mg daily 35 days postop for DVT prophylaxis) Jimenez Fitzgerald MD Feb 02, 2017 12:21
[2017-02-02 15:59] VITALS: BP 98/62; PULSE 84; RESP 18; O2SAT 99
[2017-02-02 20:38] VITALS: BP 111/73; PULSE 88; RESP 20; O2SAT 100
[2017-02-03] MEDS: HYDROcodone-APAP 5-325 mg Tablet PO PRN ×4 (00:14→14:12)
[2017-02-03] MEDS: Lactated Ringer's 1,000 ML IV SCH ×2 (01:30→14:16)
--- NOTE | 2017-02-03 02:44 | NUR ---
Pain Pt. has been requesting norco 5mg PO q4h 2 tabs as needed. Pt. reports the most painful time is during ambulation. Pt. describes pain not just in hip, but in all joints. Will continue to monitor.
[2017-02-03] MEDS: Pantoprazole 40 mg ER24 Tablet PO SCH (06:19)
[2017-02-03] MEDS: Sulfasalzine 500 mg Tablet PO SCH ×2 (06:19→13:31)
[2017-02-03 06:23] VITALS: BP 98/61; PULSE 75; RESP 18; O2SAT 94
--- NOTE | 2017-02-03 07:26 | PCM.PNORTH ---
Subjective Date of Service: Feb 03, 2017 Visit Information: Reason for Visit Right Hip Osteoarthritis Surgery/Surgery Date R SANGEETA 01/28/17 Post-Op Day # Date of Admission: Jan 30, 2017 at 11:02 Hospital Day # Subjective Found patient to sleep this morning easily awakened. No complaints pain this time. Patient is eating and eliminating well and has no complaints in that area. Patient has participated well with formal physical therapy yesterday 03/2017 and received recommendation for discharge to home with home health PT. I have discussed this with patient this morning and she is in agreement and understands she will be discharged home today. Postop General: No Complaints, No Shortness of Breath, No Chest Pain, Good Appetite Pain Management: PO Objective Exam Objective Alert and oriented 3 and pleasant. Postoperative dressing clean dry and intact. Toe wiggle and sensation are intact at right lower extremity distally. Calf and thigh are soft and nontender. Abduction wedges in place. Bilateral thigh-high ARMAND hose and SCDs are in place and working. Date 75-100 feet yesterday with formal physical therapy. Patient receives recommendation were discharged home with home health. Vital Signs and I/O Vital Sign - Last Date Time Temp Pulse Resp B/P Pulse Ox O2 Delivery O2 Flow Rate FiO2 02/03/17 06:23 36.5 75 18 98/61 94 Room Air 01/30/17 11:25 2 Intake and Output 02/02/17 02/02/17 02/03/17 Cumulative From/Thru 15:00 23:00 07:00 01/26/17 12:35 - 02/03/17 06:56 Intake Total 880 ml 800 ml 56349 ml Output Total 800 ml 920 ml 49307 ml Balance 80 ml -120 ml -354 ml Intake Oral 880 ml 800 ml 8760 ml IV Total 2986 ml Output Urine Total 800 ml 920 ml 72972 ml Estimated Blood Loss 150 ml # Voids 3 # Bowel Movements 1 3 Result Diagram: 01/31/17 0509 General Appearance: Alert, Oriented X3, Cooperative, No Acute Distress Extremities: No Compartment Syndrom Noted, Thigh & Calf Soft/Nontender Postop Sensory Motor: Distal Motor Intact, Movement in Toes, Distal Sensation Intact Activity: Activity per PT, Ambulate with PT (weightbearing as tolerated on the right lower extremity using front wheeled walker. Posterior hip precautions. Abduction pillow should be in place while patient is in bed for the next 4 weeks.) Catheters: None Assessment & Plan Plan Postop day #4 from an elective right total hip arthroplasty performed on [address] Jimenez Fitzgerald Weightbearing as tolerated on the right lower extremity using front wheeled walker. Posterior hip precautions are in place. Abduction pillow should be used while in bed for the next 6 weeks postop. Abduction pillow use timeframe has been adjusted by Dr. Britton in his progress note dated 02/01/2017. Continue formal physical therapy for mobility, gait and safety. Continue by mouth pain medications only for pain control at this time.. Continue Xarelto 10 mg daily 35 days postop for DVT prophylaxis. Bilateral thigh-high ARMAND hose and SCDs are placed. Abduction wedge is in place. Postoperative dressings is clean dry and intact. Nursing please send patient home with additional dressing materials for dressing changes every 2 days. Ice and elevate the right lower extremity as needed for pain control. Keep wound clean dry and intact and covered until seen in office in 2 weeks. Change dressings as needed. Patient may shower but wound should be kept covered and dry. Do not soak the wound and of hot tub or pool. Maintain abduction wedge or pillows in place at all times while in bed. Use posterior hip precautions when pursuing home health therapy. Follow-up in 2 weeks at [facility] orthopedic clinic with Dr. Jimenez Fitzgerald for suture removal, Steri-Strip placement and wound check. Follow-up in 6 weeks at [facility] orthopedic clinic with Dr. Jimenez Fitzgerald with AP pelvis and right crosstable lateral hip x-rays on arrival. Discharge patient to home today on postop day #4, 02/03/2017 with family as caregivers and home health services. . VTE Prophylaxis: SCDs (bilateral), ARMAND Hose (bilateral), Other (Xarelto 10mg daily 35 days postop for DVT prophylaxis) Wellington Peralta PA-C Feb 03, 2017 07:26
--- NOTE | 2017-02-03 07:33 | PCM.DIORTH ---
Ortho Discharge Instruction Date of Service: Feb 03, 2017 Dates of Hospitalization Date of Hospital Admission Jan 30, 2017 at 11:02 Providers Admitting Physician: Jimenez Fitzgerald MD Primary Care Physician: Brissa Nicholson PA-C Attending Physician: Jimenez Fitzgerald MD Diet Discharge Diet: No restrictions Activity Discharge Activity-General: Be up and about, Balance rest and activity, Ice incision 3-5 time/day for 20min, Activity as pain allows, Activity as energy allows, No driving while taking narcotic Right Lower Extremity: Weight Bearing as tolerated Discharge Assist Device: Front Wheeled Walker Dressing and Incisional Care Discharge Dressing Care: Keep dressing clean, dry & intact, Change soiled dressing Discharge Hygiene: May shower (patient may shower but wound must be taped and covered and kept clean and dry.), DO NOT soak incision under water, NO bathtub, hot tub or whirlpool Additional Instructions Discharge Instructions Postop day #4 from an elective right total hip arthroplasty performed on [address] Jimenez Fitzgerald Weightbearing as tolerated on the right lower extremity using front wheeled walker. Posterior hip precautions are in place. Abduction pillow should be used while in bed for the next 6 weeks postop. Abduction pillow use timeframe has been adjusted by Dr. Britton in his progress note dated 02/01/2017. Continue formal physical therapy for mobility, gait and safety. Continue by mouth pain medications only for pain control at this time.. Continue Xarelto 10 mg daily 35 days postop for DVT prophylaxis. Bilateral thigh-high ARMAND hose and SCDs are placed. Abduction wedge is in place. Postoperative dressings is clean dry and intact. Nursing please send patient home with additional dressing materials for dressing changes every 2 days. Ice and elevate the right lower extremity as needed for pain control. Keep wound clean dry and intact and covered until seen in office in 2 weeks. Change dressings as needed. Patient may shower but wound should be kept covered and dry. Do not soak the wound and of hot tub or pool. Maintain abduction wedge or pillows in place at all times while in bed. Use posterior hip precautions when pursuing home health therapy. Follow-up in 2 weeks at [facility] with Dr. Jimenez Fitzgerald for suture removal, Steri-Strip placement and wound check. Follow-up in 6 weeks at [facility] orthopedic clinic with Dr. Jimenez Fitzgerald with AP pelvis and right crosstable lateral hip x-rays on arrival. Discharge patient to home today on postop day #4, 02/03/2017 with family as caregivers and home health services. Follow Up Plan Follow Up Plan Patient will be seen at 2 weeks, 6 weeks and 12 weeks postoperatively. Patient will be seen when necessary in the interim. Follow-up Provider (F9): Jimenez Fitzgerald MD Follow-up appointment: Weeks (Patient will be seen at 2 weeks, 6 weeks and 12 weeks postoperatively. Patient will be seen when necessary in the interim.) Call your provider for: Fever, Chills, Shortness of breath, Vomitting, Drainage at incision Wellington Peralta PA-C Feb 03, 2017 07:33
[2017-02-03] MEDS ORDERED: HYDR-4003 PO (07:41)
[2017-02-03] MEDS ORDERED: DOCU-41 PO (07:41)
[2017-02-03] MEDS ORDERED: RIVA10TA PO (07:41)
--- NOTE | 2017-02-03 07:45 | PCM.DC.ORT ---
Discharge Summary Date of Service: Feb 03, 2017 Date of Hospital Admission: Jan 30, 2017 at 11:02 Date of Surgery: Jan 30, 2017 Date of Discharge: Feb 03, 2017 Reason for Hospitalization: Severe right hip osteoarthritis Procedures Performed: Right total hip arthroplasty Hospital Course: Patient was admitted through the preoperative care unit on 01/30/2017 and upon processing was taken to the operating room where her procedure was performed without incident. Patient was then awakened and taken to the postoperative care unit and upon recovery from anesthesia was transferred to the orthopedic care unit where she participated with formal physical therapy. Patient did experience a slow start due to difficulty in rising from her bed but overcame this with additional therapy. She is ultimately done well in gait training and has received recommendation for discharge to home with home health services. Problems: (1) Arthritis of right hip Status: Acute ICD Code: M19.90 Disposition: Home with home health services and family his caregivers Orthopedic Follow up Plan: In Two Weeks in my clinic (Patient will be seen at 2 weeks, 6 weeks and 12 weeks postoperatively. Patient will be seen when necessary in the interim.) Discharge Instructions: Postop day #4 from an elective right total hip arthroplasty performed on [address] Jimenez Fitzgerald Weightbearing as tolerated on the right lower extremity using front wheeled walker. Posterior hip precautions are in place. Abduction pillow should be used while in bed for the next 6 weeks postop. Abduction pillow use timeframe has been adjusted by Dr. Britton in his progress note dated 02/01/2017. Continue formal physical therapy for mobility, gait and safety. Continue by mouth pain medications only for pain control at this time.. Continue Xarelto 10 mg daily 35 days postop for DVT prophylaxis. Bilateral thigh-high ARMAND hose and SCDs are placed. Abduction wedge is in place. Postoperative dressings is clean dry and intact. Nursing please send patient home with additional dressing materials for dressing changes every 2 days. Ice and elevate the right lower extremity as needed for pain control. Keep wound clean dry and intact and covered until seen in office in 2 weeks. Change dressings as needed. Patient may shower but wound should be kept covered and dry. Do not soak the wound and of hot tub or pool. Maintain abduction wedge or pillows in place at all times while in bed. Use posterior hip precautions when pursuing home health therapy. Follow-up in 2 weeks at [facility] orthopedic clinic with Dr. Jimenez Fitzgerald for suture removal, Steri-Strip placement and wound check. Follow-up in 6 weeks at [facility] orthopedic clinic with Dr. Jimenez Fitzgerald with AP pelvis and right crosstable lateral hip x-rays on arrival. Discharge patient to home today on postop day #4, 02/03/2017 with family as caregivers and home health services. Management Plan: Patient will be seen at 2 weeks, 6 weeks and 12 weeks postoperatively. Patient will be seen when necessary in the interim. ([valcyclovir]) 1,000 MG PO prn Albuterol HFA (Proair HFA) 8.5 Gm Hfa.aer.ad 2 PUFFS INHALATION Q4H PRN PRN For Shortness of Breath Calcium Carbonate/Vitamin D3 (Calcium + Vitamin D Tablet) 1 Each Tablet 1 EACH PO BID Cyclobenzaprine (Cyclobenzaprine) 10 Mg Tablet 10 MG PO TID PRN PRN Spasm Cyclosporine (Restasis) 1 Each Droperette 1 EACH OP DAILY Docusate Sodium (Colace) 100 Mg Capsule 100 MG PO BID Fluticasone/Salmeterol (Advair 100-50 Diskus) 60 Puffs/Inh Disk 1 PUFFS IH BID Gabapentin (Gabapentin) 300 Mg Capsule 900 MG PO HS Hydrochlorothiazide (Hydrochlorothiazide) 50 Mg Tablet 50 MG PO DAILY Hydrocodone-Acetaminophen 5-325 mg (Hydrocodone-Acetaminophen 5-325 mg) 1 Each Tablet 1-2 TABLET PO Q4H PRN PRN For Moderate Pain Loratadine ODT (Claritin ODT) 5 Mg Tablet 5 MG PO DAILY Magnesium Oxide (Magnesium) 250 Mg Tablet 250 MG PO BID Metformin (Metformin) 500 Mg Tablet 500 MG PO BID Multivitamin (Multi Vitamin Daily) 1 Each Tablet 1 EACH PO DAILY Niacin (Niacin) 500 Mg Tablet 500 MG PO DAILY Omeprazole (Omeprazole) 40 Mg Capsule.dr 40 MG PO DAILY Oxybutynin Chloride (Oxybutynin Chloride) 5 Mg Tablet 5 MG PO BID Polyethylene Glycol 3350 (Miralax) 17 Gm Powd.pack 17 GM PO DAILY Potassium Gluconate (Potassium) 99 Mg Tablet 2 TAB PO BID Rivaroxaban (Xarelto) 10 Mg Tablet 10 MG PO DAILY Sulfasalazine (Sulfasalazine) 500 Mg Tablet 500 MG PO QID Wellington Peralta PA-C, Apr 7, 2017 07:45
[2017-02-03] MEDS: Pt Own Med->RESTASIS BOTH_EYES SCH (08:09)
[2017-02-03] MEDS: Polyethylene Glycol (PEG) 17 Gm Powder PO SCH (08:10)
[2017-02-03] MEDS: Senna-Docusate 8.6-50 mg Tablet PO SCH (08:10)
[2017-02-03 08:14] VITALS: BP 93/56; PULSE 67; RESP 16; O2SAT 96
[2017-02-03] MEDS: Tolterodine ER 2 mg ER24 Capsule PO SCH (08:30)
[2017-02-03] MEDS: Fluticasone-Salmeterol 100-50 Inhaler INHALATION SCH (08:30)
--- NOTE | 2017-02-03 10:32 | NUR ---
Received TC from Mayur at [facility], they have received first part of auth from [employer]. Just waiting on financial forms to come back. Mayur asked that transport be set-up at 3pm. Advised COAT HANGER SHAPER MACHINE OPERATOR who will talk to MD and pt. Addendum: 02/03/17 at 1140 by JERMAINE MAYES SS Received TC from [facility], they can accept pt and will pick her up at 2pm. Advised COAT HANGER SHAPER MACHINE OPERATOR. faxed orders, packet ready.
--- NOTE | 2017-02-03 11:36 | NUR ---
Social Work- Discharge Data: EMR reviewed. Pt is on day 4 of hospitalization for right hip osteoarthritis per H&P. Pt is medically stable for discharge. PT is recommending SNF upon discharge. OT is recommending SNF at discharge. UR Specialist notified COMMUNITY ASSOCIATE that Mayur, admissions at [facility], has received insurance authorization for pt's SNF placement at discharge. Mayur agreeable to accepting pt today. SW notified pt of authorization, Pt agreeable to discharge to SNF. SW updated [facility] of pt's discharge to SNF. Paperwork and PASRR in chart. UR Specialist to create packet and fax orders. Mayur coordinated transportation via cabulance at 1400. Pt to discharge to [facility] via cabulance at 1400. UC, RN and pt/family all updated and agreeable to plan. Assessment: Pt who would benefit from SNF. Plan: PT/OT recommending SNF. Pt has received SNF authorization from payor. Pt to discharge to [facility] via cabulance at 1400. UC, RN and pt/family all updated and agreeable to plan. Amina Bhatti, COMMUNITY ASSOCIATE
--- NOTE | 2017-02-03 15:01 | NUR ---
DISCHARGE [place] 2 tabs PO has been adequate for pain control.. Patient would rate her pain as 2/10 after her pain medication. Tolerating liquids PO and her diet well. Denies nausea. No emesis noted. Denies SOB. Patient has been able to ambulate in the room and in the hallway with SBA and a FWW. Tolerated activity well. Dressing is CDI. Bong hose are on. IV saline lock d/cd. Discharge report given to [facility] on [facility]. Patient d/cd to [facility] with all her personal belongings via cabulance.
== END 2017-02-03 14:45 | DRG 470 ==
LOC: SAS 05:30 → OSC 11:02
PROVIDERS: ADMIT Orthopaedic Surgery; ATTEND Orthopaedic Surgery
PROC: 0SR902A Replacement of Right Hip Joint with Metal on Polyethylene Synthetic Substitute, Uncemented, Open Approach (ICD-10-PCS; principal; 2017-01-30 07:30)
DX: M16.11 Unilateral primary osteoarthritis, right hip (principal); E11.9 Type 2 diabetes mellitus without complications

== ENCOUNTER 2017-05-17 06:48 | Inpatient (IN) | payer OTHER ==
[~2017-05-17] VITALS: Ht 152.4 cm; Wt 79.3 kg
[2017-05-17] VITALS (16 sets, daily range): BP systolic 98–145; BP diastolic 49–82; PULSE 59–88; RESP 9–20; O2SAT 90–99
[~2017-05-17 06:48] MED LIST changes: +Acetaminophen IV 1,000 MG in IV Premix 1 EACH IV SCH; +Bupivacaine Liposome 1.3% 20 mL Inj INFILTRATE SCH; +CALC-140 PO; -CYCL1DRO OP; +CeFAZolin Inj 2 GM in IV Premix 1 EACH IV SCH; -HYDR50TA3 PO; +LEVO50TA6 PO; +LORA5TAB8 PO; +Lactated Ringer's 1,000 ML IV SCH; +MULT-1018 PO; -POTA99TA21 PO; -TRAM50TA2 PO; +Vancomycin Inj 1,250 MG in 0.9% Sodium Chloride 250 ML IV SCH; +valcyclovir PO
[2017-05-17] MEDS ORDERED: Vancomycin 1,000mg/200 mL NS IV ONE (07:33)
[2017-05-17] MEDS ORDERED: Hip/Knee Infiltration Cocktail IM ONE ×7 (08:00)
[2017-05-17] MEDS ORDERED: Lactated Ringer's 1,000 ML IV ONE (08:15)
[2017-05-17] MEDS ORDERED: CYCL10TA9 PO (08:32)
[2017-05-17] MEDS ORDERED: OXYB10TA PO ×2 (08:37→22:20)
[2017-05-17] MEDS ORDERED: DULO30CA50 PO (08:37)
[2017-05-17] MEDS ORDERED: OMEP40CA36 PO (08:37)
[2017-05-17] MEDS ORDERED: VALA100026 PO (08:40)
[2017-05-17] MEDS ORDERED: fentaNYL-PF 50 mCg/mL 2 mL Inj ONE ×2 (10:21→15:47)
[2017-05-17] MEDS ORDERED: Ketorolac 15 mg/mL Inj IVPUSH PRN (10:50)
[2017-05-17] MEDS ORDERED: hydrOXYzine Pamoate 25 mg Capsule PO PRN (10:50)
[2017-05-17] MEDS ORDERED: Magnesium Hydroxide 10 mL Oral Concentration PO PRN (10:50)
[2017-05-17] MEDS ORDERED: Sodium Biphos-Phos 133 mL Enema RECTAL PRN (10:50)
[2017-05-17] MEDS ORDERED: diphenhydrAMINE 25 mg Capsule PO PRN (10:50)
[2017-05-17] MEDS ORDERED: Bupivacaine Liposome 1.3% 20 mL Inj ONE (10:56)
[2017-05-17] MEDS ORDERED: Bacitracin 50,000 unit Inj ONE (10:57)
[2017-05-17] MEDS ORDERED: fentaNYL-PF 50 mCg/mL 2 mL Inj IVPUSH ONE (11:00)
[2017-05-17] MEDS ORDERED: Lactated Ringer's 1,000 ML IV SCH (11:02)
[2017-05-17] MEDS ORDERED: Lactated Ringer's 500 ML IV PRN (11:02)
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
--- NOTE | 2017-05-17 11:02 | PCM.ORTHOP ---
Orthopedic Operative Report Date of Service: May 17, 2017 Pre Operative Diagnosis Left hip degenerative joint disease Post Operative Diagnosis Same Procedure Left total hip arthroplasty Surgeon Surgeon: Jimenez Fitzgerald MD Assistants: Vianey Thakur Indication for Procedure Left hip degenerative joint disease Findings Per dictation Details of Procedure Hardware Used:[employer]ynthes Trilock Cup pinnacle 54mm cup 36X54 neutral liner Stem 4hi 36+8.5mm metal head 30mm X 6.5 cup screw Indications: Finesse Matos is a 61-year-old female who presents with DJD of the right hip. We discussed surgical risks including, but not limited to, bleeding, infection, damage to adjacent structures, need for further procedures , failure to heal and/or relieve pain, HW failure, loosening, and/or wear, change in limb length and/or alignment, fracture, dislocation, decreased strength, sensation and/or ROM, adverse reaction to implants and/or medicines, DVT, PE, PA, stroke, GI bleed, organ failure, loss or limb and/or life. Patient wished to proceed with surgery regardless of risks as stated. Procedure in Detail: The patient was identified in the holding area. The operative site was confirmed with the patient while awake and the right hip was marked. The patient was taken back to the operating room and placed on the operating table in the supine position. Time out was performed to confirm patient identity, operative procedure and operative site, and allergies. General anesthesia was administered by anesthesia personal. Patient was then positioned in the lateral decubitus position. All bony prominences were well padded. The left lower leg was prepped. Prophylactic antibiotics were administered. 1000mg of IV transexamic acid was given preop as well as prior to closure. The standard posterolateral incision was made over the posterior 1/3 femur and greater trochanter. This was brought down to the fascial layer. Once the fascial layer and gluteus maximum were incised, the bursa was taken down. An L-shaped capsulotomy was performed. The external rotators and posterior capsule was taken down as one layer. The femoral head was cut and was removed with the aid of a head extractor. Attention was then brought to the acetabulum. The acetabulum was then cleared of soft tissue. It was reamed sequentially to 53 at which time good bleeding was encountered and the trial fit was stable. A size 54 mm acetabular cup was the impacted in the position of 40 degrees of abduction and 20 degrees of anteversion. Attention was then moved to the femur. The medial aspect of the greater trochanter was cleared of soft tissue. The osteophytes on the anterior surface of the femoral neck were removed with a curved osteotome.The femur was prepared in the standard fashion and sequentially reamed and broached to a size 4. A size 4 broach was used to trial. It was found to be stable. A high offset neck and 36+5 mm head were trialed, the hip appeared shorter on xray and clinically and a +8.5 was used.The hip was reduced and stability was tested at 90 degrees of flexion, 40 abduction, 30 internal rotation as well at 70 flexion, 30 IR and no inpingement with extension and external rotation. Leg lengths were checked and found to be approximatey equal lengths. Stability was found to be satisfactory. Intraoperative x-rays were obtained and indicated good positioning of the acetabulum and femoral components. The femoral trials were removed and the size 4 femoral components were impacted in with a 36+8.5 mm femoral head. The hip was reduced. Exparel was used and injected into the soft tissues of multiple sites. The wound was irrigated and the capsular repair was done through bone tunnels with #5 Ethibond. The fascia was closed with #1 and 0 vicryl popoffs. The incision was closed with Stratofix and dressed with steristrips, xeroform, 4X4, ABD and dermapore tape. Abduction pillow was placed and the patient was transferred to a hospital bed. Patient was then awakened without complications and transferred to the recovery room in stable condition. CODING COMPLIANCE MANAGER SURGEON: During the operation, the services of physician surgical nurse were medically indicated and necessary to provide exposure of the operative site for the surgical procedure and to maintain the limb in a proper position to carry out the operation safely and efficiently. Without the qualified food and beverage assistant being present, it would have extended the operative procedure and made the procedure technically more difficult to perform. Weight-bear as tolerated physical therapy. Dressing change in 2 days. Keep dressing clean dry and intact. Discharged on Xarelto 35 days, [place] and Colace. Keep abduction pillow on at all times when in bed for the next 4 weeks. Follow-up with me in 2 weeks with dressing change with new Steri- Strips. Follow-up with me in 6 weeks until fully mobilized. Patient may follow -up with me at 12 weeks and again at 6 months and 12 months postop. Please keep the affected extremity elevated when possible. Continue posterior hip cautions. You may use ice and/or heat as needed for comfort. All questions and concerns were addressed with patient/family. Please feel free to call with any further questions, comments, and/or concerns. Grafts, Implants: Implants-See Implant Record Complications There were no periprocedural complications identified. Condition Stable Anesthetic Administered: GA Catheters: None Output, Estimated Blood Loss: 50 Blood Admin during surgery: No Surgical Cast or Splint: Other Surgical Specimen Removed: No Specimen sent to Pathology: No copies to: Jimenez Fitzgerald MD, Christopher L MD May 17, 2017 11:02 Procedure in Detail: The patient was identified in the holding area. The operative site was confirmed with the patient while awake and the right hip was marked. The patient was taken back to the operating room and placed on the operating table in the supine position. Time out was performed to confirm patient identity, operative procedure and operative site, and allergies. General anesthesia was administered by anesthesia personal. Patient was then positioned in the lateral decubitus position. All bony prominences were well padded. The right lower leg was prepped. Prophylactic antibiotics were administered. 1000mg of IV transexamic acid was given preop as well as prior to closure. The standard posterolateral incision was made over the posterior 1/3 femur and greater trochanter. This was brought down to the fascial layer. Once the fascial layer and gluteus maximum were incised, the bursa was taken down. An L-shaped capsulotomy was performed. The external rotators and posterior capsule was taken down as one layer. The femoral head was cut and was removed with the aid of a head extractor. Attention was then brought to the acetabulum. The acetabulum was then cleared of soft tissue. It was reamed sequentially to 53 at which time good bleeding was encountered and the trial fit was stable. A size 54 mm acetabular cup was the impacted in the position of 40 degrees of abduction and 20 degrees of anteversion. Attention was then moved to the femur. The medial aspect of the greater trochanter was cleared of soft tissue. The osteophytes on the anterior surface of the femoral neck were removed with a curved osteotome.The femur was prepared in the standard fashion and sequentially reamed and broached to a size 4. A size 4 broach was used to trial. It was found to be stable. A high offset neck and 36+5 mm head were trialed. The hip was reduced and stability was tested at 90 degrees of flexion, 40 abduction, 30 internal rotation as well at 70 flexion, 30 IR and no inpingement with extension and external rotation. Leg lengths were checked and found to be approximatey equal lengths. Stability was found to be satisfactory. Intraoperative x-rays were obtained and indicated good positioning of the acetabulum and femoral components. The femoral trials were removed and the size 4 femoral components were impacted in with a 36+5 mm femoral head. The hip was reduced. Exparel was used and injected into the soft tissues of multiple sites. The wound was irrigated and the capsular repair was done through bone tunnels with #5 Ethibond. The fascia was closed with #1 and 0 vicryl popoffs. The incision was closed with Stratofix and dressed with steristrips, xeroform, 4X4, ABD and dermapore tape. Abduction pillow was placed and the patient was transferred to a hospital bed. Patient was then awakened without complications and transferred to the recovery room in stable condition. CODING COMPLIANCE MANAGER SURGEON: During the operation, the services of physician surgical nurse were medically indicated and necessary to provide exposure of the operative site for the surgical procedure and to maintain the limb in a proper position to carry out the operation safely and efficiently. Without the qualified food and beverage assistant being present, it would have extended the operative procedure and made the procedure technically more difficult to perform. Weight-bear as tolerated physical therapy. Dressing change in 2 days. Keep dressing clean dry and intact. Discharged on Xarelto 35 days, [place] and Colace. Keep abduction pillow on at all times when in bed for the next 4 weeks. Follow-up with me in 2 weeks with dressing change with new Steri- Strips. Follow-up with me in 6 weeks until fully mobilized. Patient may follow -up with me at 12 weeks and again at 6 months and 12 months postop. Please keep the affected extremity elevated when possible. Continue posterior hip cautions. You may use ice and/or heat as needed for comfort. All questions and concerns were addressed with patient/family. Please feel free to call with any further questions, comments, and/or concerns. Grafts, Implants: Implants-See Implant Record Complications There were no periprocedural complications identified. Condition Stable Anesthetic Administered: GA Catheters: None Output, Estimated Blood Loss: 50 Blood Admin during surgery: No Surgical Cast or Splint: Other Surgical Specimen Removed: No Specimen sent to Pathology: No copies to: Jimenez Fitzgerald MD, Christopher L MD May 17, 2017 11:02
[2017-05-17] MEDS ORDERED: 0.9% Sodium Chloride 200 ML ONE (11:04)
[2017-05-17] MEDS ORDERED: Tranexamic Acid 100 mg/mL 10 mL Inj ONE (11:04)
[2017-05-17] MEDS ORDERED: Ondansetron 2 mg/mL 2 mL Inj IVPUSH PRN (11:05)
[2017-05-17] MEDS ORDERED: fentaNYL-PF 50 mCg/mL 2 mL Inj IVPUSH PRN (11:05)
[2017-05-17] MEDS ORDERED: Dexamethasone 4 mg/mL Inj IVPUSH PRN (11:05)
[2017-05-17] MEDS ORDERED: MetoCLOpramide 5 mg/mL 2 mL Inj IVPUSH PRN (11:05)
[2017-05-17] MEDS ORDERED: EPHEDrine Sulfate 50 mg/mL Inj IVPUSH PRN (11:05)
[2017-05-17] MEDS ORDERED: HYDROmorphone 1 mg/mL Inj IVPUSH PRN (11:05)
[2017-05-17] MEDS ORDERED: Phenylephrine 10,000 mCg/mL Inj IVPUSH PRN (11:05)
[2017-05-17] MEDS ORDERED: Bupivacaine Liposome 1.3% 20 mL Inj INFILTRATE ONE (12:00)
[2017-05-17] MEDS ORDERED: 0.9% Sodium Chloride 10 mL Inj INFILTRATE ONE (12:01)
[2017-05-17] MEDS ORDERED: Bacitracin 50,000 unit Inj IRRIGATION ONE (12:01)
--- NOTE | 2017-05-17 14:35 | PCM.ANEP1 ---
Post Anesthesia PACU Phase 1 Assessment Vital Signs Vital Signs Date Time Temp Pulse Resp B/P Pulse Ox O2 Delivery O2 Flow Rate FiO2 05/17/17 14:20 68 16 98/49 99 Simple Mask 10 05/17/17 14:15 62 17 102/64 98 Simple Mask 10 05/17/17 14:10 36.8 66 16 119/67 99 Simple Mask 10 05/17/17 08:14 36.4 69 16 145/82 96 Room Air Anesthetic Administered: GA Level of Alertness: Awake, talking CALI's with Equal Strength: Yes Pain: No Nausea or Vomiting: No CV Function & Hydration Stable: Yes Airway Device: Oxygen Delivery: Simple Mask Lungs: Clear to Auscultation PACU Phase 2 Assessment Complications: No Follow up Care: N/A Patient Instructions Provided: N/A Johnathan Rivera MD May 17, 2017 14:35
[2017-05-17] MEDS: 0.9% Sodium Chloride 1,000 ML IV SCH ×2 (14:55→15:25)
--- NOTE | 2017-05-17 15:07 | DRSVH ---
PROCEDURE: X-RAY PELVIS W/LAT HIP (LT) ([id number]) INDICATIONS: s/p L SANGEETA TECHNIQUE: AP pelvis and lateral view of the left hip acquired. COMPARISON: None. FINDINGS: Bones: Patient is status post left hip arthroplasty, with hardware components in expected positions. The hip joint appears congruent. The visualized bony structures appear intact. Right hip arthroplasty and partially visualized lumbar spinal instrumentation. Soft tissues: Overlying postoperative changes are noted. No suspicious soft tissue densities. IMPRESSION: Expected postoperative alignment of left hip arthroplasty Dictated by: Armando Porter M.D. on 05/17/2017 at 15:03 Approved by: Armando Porter M.D. on 05/17/2017 at 15:05
[2017-05-17] MEDS ORDERED: Propofol 10,000 mCg/mL 20 mL Inj ONE (15:47)
[2017-05-17] MEDS ORDERED: Ondansetron 2 mg/mL 2 mL Inj ONE (15:47)
[2017-05-17] MEDS ORDERED: HYDROmorphone 1 mg/mL Inj ONE (15:47)
[2017-05-17] MEDS ORDERED: Neostigmine 1 mg/mL 10 mL Inj ONE (15:47)
[2017-05-17] MEDS ORDERED: Glycopyrrolate 0.2 MG/ML 1mL Inj ONE (15:47)
[2017-05-17] MEDS ORDERED: Rocuronium 10 mg/mL 5 mL Inj ONE (15:47)
[2017-05-17] MEDS ORDERED: Dexamethasone 4 mg/mL Inj ONE (15:47)
[2017-05-17] MEDS ORDERED: HYDROmorphone 0.5 mg/0.5 mL iSecure Syringe IVPUSH PRN (15:50)
[2017-05-17] MEDS: Acetaminophen IV 1,000 MG in IV Premix 1 EACH IV SCH ×2 (16:00→21:59)
--- NOTE | 2017-05-17 16:11 | NUR ---
Arrival to 1020 Pt brought down on a VIK bed from PACU at 1535. Pt is alert and oriented, very happy and reports a "wonderful 3/10" pain in her L hip. Dressing is CDI, eisenberg patent and draining to gravity, and belongings in room. Denies nausea and is requesting food. paged regarding home meds not being restarted.
[2017-05-17] MEDS ORDERED: Albuterol 2.5 mg/3 mL Inhalation Solution NEB PRN (17:45)
[2017-05-17] MEDS: CeFAZolin Inj 1 GM in IV Premix 1 EACH IV SCH (18:36)
[2017-05-17] MEDS: Sodium Chloride LOK Flush 10 mL Syringe IV SCH (18:36)
[2017-05-17] MEDS: Senna-Docusate 8.6-50 mg Tablet PO SCH (20:30)
[2017-05-17] MEDS: Fluticasone-Salmeterol 100-50 Inhaler INHALATION SCH (20:30)
[2017-05-17] MEDS: Sulfasalzine 500 mg Tablet PO SCH (20:30)
[2017-05-18] MEDS: Sodium Chloride LOK Flush 10 mL Syringe IV SCH ×3 (00:30→17:23)
[2017-05-18] MEDS: 0.9% Sodium Chloride 1,000 ML IV SCH ×2 (03:16→15:55)
[2017-05-18] MEDS: CeFAZolin Inj 1 GM in IV Premix 1 EACH IV SCH (03:16)
[2017-05-18] MEDS: Acetaminophen IV 1,000 MG in IV Premix 1 EACH IV SCH ×2 (03:22→10:00)
[2017-05-18 05:21] VITALS: BP 106/67; PULSE 80; RESP 17; O2SAT 94
--- NOTE | 2017-05-18 05:25 | NUR ---
Pain Pt. has requested to be woken up for pain meds every 4 hours. 5mg Roxycodone given. Pt. reports that being effective. Will continue to monitor.
[2017-05-18] MEDS ORDERED: oxyCODONE-Acetamin 5-325 mg Tablet PO PRN (07:20)
--- NOTE | 2017-05-18 07:20 | PCM.PNORTH ---
Subjective Date of Service: May 18, 2017 Visit Information: Reason for Visit Left Hip Arthritis Surgery/Surgery Date Post-Op Day # Date of Admission: May 17, 2017 at 15:46 Hospital Day # Subjective Found patient awake and alert this morning. No complaints of pain at this time. Discussed participation with physical therapy and patient is anticipating this. 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 We have talked about removing her Ramirez after her first PT session this morning and we have talked about maintaining her hip abduction wedge in place while in bed. Postop General: No Complaints, No Shortness of Breath, No Chest Pain Pain Management: PO Objective Exam Objective Alert and oriented 3 and pleasant. Interoperative dressing is clean dry and intact Hip abduction wedge is in place. Bilateral thigh-high ARMAND hose are in place. Calf and thigh are soft and nontender. Toe wiggle and sensation are intact at left lower extremity distally Ramirez is in place and working. No physical therapy yet as of this time Vital Signs and I/O Vital Sign - Last Date Time Temp Pulse Resp B/P Pulse Ox O2 Delivery O2 Flow Rate FiO2 05/18/17 05:21 37.1 80 17 106/67 94 Room Air 05/17/17 15:52 2.00 Intake and Output 05/17/17 05/17/17 05/18/17 Cumulative From/Thru 15:00 23:00 07:00 05/11/17 15:03 - 05/18/17 06:04 Intake Total 1470 ml 325 ml 3697 ml 5492 ml Output Total 50 ml 425 ml 3150 ml 3625 ml Balance 1420 ml -100 ml 547 ml 1867 ml Intake Oral 100 ml 2526 ml 2626 ml IV Total 1470 ml 225 ml 1171 ml 2866 ml Output Urine Total 425 ml 3150 ml 3575 ml Estimated Blood Loss 50 ml 50 ml # Bowel Movements 0 0 Lab & Micro Results Laboratory Tests Test 05/18/17 05:50 General Appearance: Alert, Oriented X3, Cooperative, No Acute Distress Extremities: No Compartment Syndrom Noted, Thigh & Calf Soft/Nontender Postop Sensory Motor: Distal Motor Intact, Movement in Toes, Distal Sensation Intact Activity: Activity per PT, Ambulate with PT (weightbearing as tolerated on the left lower extremity using front wheeled walker - posterior hip precautions.) Catheters: Urethral [address] Way Ramirez (Ramirez to be removed today on 05/18/2017 after first PT session.) Assessment & Plan Impression Patient is a 61-year-old female who is in [facility] and has undergone a right hip replacement recently. Patient is familiar with this process both from her work life and from previous hip surgery history. She is anticipating a good course secondary to being physically stronger and more experienced at this time.. Problems: Plan Postop day #1 from left total hip arthroplasty performed on 05/17/[address] Jimenez Fitzgerald. Continue weightbearing as tolerated on the left lower extremity using front wheeled walker. Use posterior hip precautions. Continue formal physical therapy for mobility, gait and safety. Use posterior hip precautions. Continue by mouth pain medication as needed in the form of Percocet 5/325 or [place] 03/01/2025 with Charmaine 5 mg or Vistaril 25 mg as needed. Continue Xarelto 10 mg daily 35 days postop for DVT prophylaxis. Change intraoperative dressing on postop day #2. Nursing please avoid IV pain medications and use by mouth pain medications as outlined above. Nursing discontinue Ramirez today on 05/18/2017 after first PT session. Nursing maintain abduction wedge between the knees at all times while patient is in bed. Nursing please fit right lower extremity SCD today. At Dr. Jimenez Fitzgerald's request patient will be followed daily by orthopedics while in-house. Follow-up in 2 weeks at [facility] orthopedic clinic with Dr. Jimenez Fitzgerald for wound check and suture removal with new Steri-Strips. Follow-up in 6 weeks at [facility] orthopedic clinic with Dr. Jimenez Fitzgerald with AP pelvis and left crosstable lateral hip x-rays on arrival. Patient indicates she refuses discharg to [facility] facility secondary to a bad experience. I have encouraged her to participate fully with formal physical therapy while in-house for maximum mobility and safety. Anticipate discharge to home with sister and [id number] as caregivers on postop day #2, 05/19/2017. VTE Prophylaxis: SCDs (right lower extremity SCD), ARMAND Hose (bilateral thigh- high ARMAND hose), Other (Xarelto 10 mg daily 35 days postop for DVT prophylaxis) Wellington Peralta PA-C May 18, 2017 07:20
[2017-05-18] MEDS ORDERED: HYDROcodone-APAP 5-325 mg Tablet PO PRN (07:25)
[2017-05-18] MEDS: Sulfasalzine 500 mg Tablet PO SCH ×2 (08:04→20:30)
[2017-05-18] MEDS: Fluticasone-Salmeterol 100-50 Inhaler INHALATION SCH ×2 (08:04→20:30)
[2017-05-18] MEDS: Multivit-Miner-Folic Acid-Iron Tablet PO SCH (08:06)
[2017-05-18] MEDS: Pantoprazole 40 mg ER24 Tablet PO SCH (08:14)
[2017-05-18] MEDS: DULoxetine 30 mg DR Capsule PO SCH (08:14)
[2017-05-18] MEDS: Senna-Docusate 8.6-50 mg Tablet PO SCH ×2 (08:15→20:30)
[2017-05-18] MEDS: Polyethylene Glycol (PEG) 17 Gm Powder PO PRN (08:18)
[2017-05-18 08:57] VITALS: BP 108/65; PULSE 94; RESP 18; O2SAT 95
[2017-05-18 09:17] LABS: Mean Corpuscular Hemoglobin 29.3 pg (27.0-35.0); Mean Corpuscular Volume 90.2 fL (81-100); NEUTROPHILS % (AUTO) 78.9 % (40-74); Platelet Count 199 bil/L (150-400)
[2017-05-18 09:18] LABS: BASOPHILS % (AUTO) 0.1 % (0-3); EOSINOPHILS % (AUTO) 0 % (0-5); MONOCYTES % (AUTO) 9.1 % (4-12)
--- NOTE | 2017-05-18 11:04 | NUR ---
Social Work- Brief Note/Multidisciplinary Rounds Data: EMR reviewed. Pt is a 61 year old female admitted 05/17/17 for left hip replacement per H&P. Pt is POD 1. Pt's insurance is [employer]. Pt's PCP is Brissa Nicholson PA-C. Pt's readmit risk score is not listed at this time. Per multidisciplinary rounds, pt is anticipated to discharge tomorrow. PT is evaluating pt. No SW needs identified in rounds. SW met with pt at bedside regarding discharge plan. Pt lives in [place] with her sister and brother in law where she is independent at baseline. Pt alert and oriented x3. Pt has a walker available at home. Pt has history at SNF and reported to [employer] that she will not be going to a SNF after this admission. Pt reports that she is stronger for this surgery due to 12 outpt PT visits after her last hip replacement. Pt is confident that she will not need HH or SNF at discharge. SW will continue to follow pt after pt's evaluation with PT and work with Ortho provider to determine needs at discharge. Pt anticipated to discharge home with sister to transport via POV. SW will continue to follow. Assessment: Pt who is independent at baseline. Plan: SW will continue to follow pt after pt's evaluation with PT and work with Ortho provider to determine needs at discharge. Pt anticipated to discharge home with sister to transport via POV. SW will continue to follow. Amina Bhatti MSW
--- NOTE | 2017-05-18 11:47 | NUR ---
Evaluation completed. Please go to "Notes" then click on "Assessments and Notes" (bottom left corner of screen). Then select appropriate discipline tab on top of screen.
[2017-05-18 12:57] VITALS: BP 109/63; PULSE 95; RESP 18; O2SAT 95
--- NOTE | 2017-05-18 14:57 | NUR ---
Evaluation completed. Please go to "Notes" then click on "Assessments and Notes" (bottom left corner of screen). Then select appropriate discipline tab on top of screen.
[2017-05-18 17:06] VITALS: BP 100/55; PULSE 86; RESP 20; O2SAT 92
--- NOTE | 2017-05-18 19:02 | NUR ---
Ramirez/Pain Ramirez DC'd at 1500 before PT. Patient voiding spontaneously at 1900. Pain well controlled with 5mg Dasha when resting, required 10mg after PT and OT.
[2017-05-18 20:20] VITALS: BP 115/69; PULSE 86; RESP 16; O2SAT 93
[2017-05-19] MEDS: Sodium Chloride LOK Flush 10 mL Syringe IV SCH ×3 (02:08→17:16)
[2017-05-19] MEDS: 0.9% Sodium Chloride 1,000 ML IV SCH ×2 (03:57→16:55)
--- NOTE | 2017-05-19 05:30 | NUR ---
Pain Pt. has reported pain increasing with using the commode. Pt. given 10 mg Charmaine PO. Will continue to monitor.
[2017-05-19 06:10] VITALS: BP 107/68; PULSE 98; RESP 18; O2SAT 95
--- NOTE | 2017-05-19 07:56 | PCM.PNORTH ---
Subjective Date of Service: May 19, 2017 Visit Information: Reason for Visit Left Hip Arthritis Surgery/Surgery Date Post-Op Day # Date of Admission: May 17, 2017 at 15:46 Hospital Day # Subjective Found patient awake and alert this morning and sitting up on the bedside commode. Complaints of pain at this time. Patient does indicate she feels like she overdid it somewhat yesterday by walking 200-250 feet but she also states that she feels strong and much more ready for this hip than she was for the right side. We have discussed discharged today and patient does have her sister available to bring her home. I will encourage patient to participate with physical therapy twice again today prior to discharge and she is planning on this. Her bandages changed this morning and her wound is in good condition and she is happy to hear that. He sounds good and looks good and is energetic about her recovery. Postop General: No Complaints, No Shortness of Breath, No Chest Pain, Good Appetite Pain Management: PO Objective Exam Objective Alert and oriented 3 and pleasant. Interoperative dressing is clean dry and intact. Interoperative dressing is changed to postop dressing today with Island and Silverlon. Calf and thigh are soft and nontender. Toe wiggle and sensation are intact of left lower extremity distally Abduction wedge is in place. Bilateral thigh-high ARMAND hose are in place. Right SCD is in place. Gait 200-250 feet with physical therapy yesterday on 05/18/2017. Vital Signs and I/O Vital Sign - Last Date Time Temp Pulse Resp B/P Pulse Ox O2 Delivery O2 Flow Rate FiO2 05/18/17 20:20 37.3 86 16 115/69 93 Room Air 05/17/17 15:52 2.00 Intake and Output 05/18/17 05/18/17 05/19/17 Cumulative From/Thru 15:00 23:00 07:00 05/11/17 15:03 - 05/19/17 04:23 Intake Total 2458 ml 7950 ml Output Total 2300 ml 5925 ml Balance 158 ml 2025 ml Intake Oral 1720 ml 4346 ml IV Total 738 ml 3604 ml Output Urine Total 2300 ml 5875 ml Estimated Blood Loss 50 ml # Bowel Movements 0 0 Result Diagram: 05/18/17 0550 General Appearance: Alert, Oriented X3, Cooperative, No Acute Distress Extremities: No Compartment Syndrom Noted, Thigh & Calf Soft/Nontender Postop Sensory Motor: Distal Motor Intact, Movement in Toes, Distal Sensation Intact Activity: Activity per PT, Ambulate with PT (weightbearing as tolerated on the left lower extremity using front wheeled walker - posterior hip precautions.) Catheters: None Assessment & Plan Plan Postop day #1 from left total hip arthroplasty performed on 05/17/[address] Jimenez Fitzgerald. Continue weightbearing as tolerated on the left lower extremity using front wheeled walker. Use posterior hip precautions. Abduction wedge should remain between patient's knees when she is in bed for 4 weeks postoperatively. Continue formal physical therapy for mobility, gait and safety. Use posterior hip precautions. Continue by mouth pain medication as needed in the form of Roxicodone 5-10 mg every 4-6 hours with Vistaril if needed. Continue Xarelto 10 mg daily 35 days postop for DVT prophylaxis. Ice the left hip as needed for comfort. Change dressing every 1-2 days as needed if soiled or loosening. The ends of the island dressings adhesive may be trimmed off to allow air circulation to the wound to prevent maceration. Keep dressing otherwise clean dry and intact. Steri-Strips will be changed at 2 week visit. Nursing please send patient home with 4 additional large island dressings and 3 flushed syringes on discharge. Nursing maintain abduction wedge between the knees at all times while patient is in bed. At Dr. Jimenez Fitzgerald's request patient will be followed daily by orthopedics while in-house. Follow-up in [address] [facility] orthopedic clinic with Dr. Jimenez Fitzgerald for wound check and suture removal with new Steri-Strips. Follow-up in [address] [facility] orthopedic clinic with Dr. Jimenez Fitzgerald with AP pelvis and left crosstable lateral hip x-rays on arrival. Patient indicates she refuses discharg to senior living facility secondary to a bad experience. I have encouraged her to participate fully with formal physical therapy while in-house for maximum mobility and safety. Discharge patient to home today today in late afternoon when her right is available on 05/19/2017. Patient will go to her sister and [id number]'s home who will affect his caregivers postoperatively. VTE Prophylaxis: SCDs (right lower extremity SCD), ARMAND Hose (bilateral thigh- high ARMAND hose), Other (Xarelto 10 mg daily 35 days postop for DVT prophylaxis) Wellington Peralta PA-C May 19, 2017 07:56
--- NOTE | 2017-05-19 08:05 | PCM.DIORTH ---
Ortho Discharge Instruction Date of Service: May 19, 2017 Dates of Hospitalization Date of Hospital Admission May 17, 2017 at 15:46 Providers Admitting Physician: Jimenez Reece MD Primary Care Physician: Brissa Nicholson PA-C Attending Physician: Jimenez Reece MD Diet Discharge Diet: No restrictions Activity Discharge Activity-General: Try not to overdue, Be up and about, Balance rest and activity, Ice incision 3-5 time/day for 20min, Activity as pain allows, Activity as energy allows Left Lower Extremity: Weight Bearing as tolerated Discharge Assist Device: Front Wheeled Walker Dressing and Incisional Care Discharge Dressing Care: Keep dressing clean, dry & intact, Change soiled dressing Discharge Hygiene: May shower (patient may shower if wound and dressing are covered with plastic and well taped off to avoid getting wet.), DO NOT soak incision under water, NO bathtub, hot tub or whirlpool Additional Instructions Discharge Instructions Postop day #1 from left total hip arthroplasty performed on 05/17/[address] Jimenez Reece. Continue weightbearing as tolerated on the left lower extremity using front wheeled walker. Use posterior hip precautions. Continue formal physical therapy for mobility, gait and safety. Use posterior hip precautions. Continue by mouth pain medication as needed in the form of Roxicodone 5-10 mg every 4-6 hours with Vistaril if needed. Continue Xarelto 10 mg daily 35 days postop for DVT prophylaxis. Ice the left hip as needed for comfort. Change dressing every 1-2 days as needed if soiled or loosening. The ends of the island dressings adhesive may be trimmed off to allow air circulation to the wound to prevent maceration. Keep dressing otherwise clean dry and intact. Steri-Strips will be changed at 2 week visit. Nursing please send patient home with 4 additional large island dressings and 3 flushed syringes on discharge. Nursing maintain abduction wedge between the knees at all times while patient is in bed. At Dr. Jimenez Reece's request patient will be followed daily by orthopedics while in-house. Follow-up in 2 weeks at [facility] orthopedic clinic with Dr. Jimenez Reece for wound check and suture removal with new Steri-Strips. Follow-up in 6 weeks at [facility] orthopedic clinic with Dr. Jimenez Reece with AP pelvis and left crosstable lateral hip x-rays on arrival. Patient indicates she refuses discharg to [facility] facility secondary to a bad experience. I have encouraged her to participate fully with formal physical therapy while in-house for maximum mobility and safety. Discharge patient to home today today in late afternoon when her right is available on 05/19/2017. Patient will go to her sister and [id number]'s home who will affect his caregivers postoperatively. Follow Up Plan Follow Up Plan Patient will follow up at 2 weeks, 6 weeks and 12 weeks postoperatively. Patient will follow up when necessary in the interim. Follow-up Provider (F9): Jimenez Reece MD Follow-up appointment: Weeks (follow-up in 2 weeks [facility] orthopedic clinic with Dr. Jimenez reece.) Call your provider for: Fever, Chills, Shortness of breath, Vomitting Wellington Peralta PA-C May 19, 2017 08:04
[2017-05-19] MEDS ORDERED: HYDR-3797 PO (08:07)
[2017-05-19] MEDS ORDERED: RIVA10TA PO (08:07)
[2017-05-19] MEDS ORDERED: OXYC5TAB72 PO (08:07)
--- NOTE | 2017-05-19 08:12 | PCM.DC.ORT ---
Discharge Summary Date of Service: May 19, 2017 Date of Hospital Admission: May 17, 2017 at 15:46 Date of Surgery: May 17, 2017 Date of Discharge: May 19, 2017 Reason for Hospitalization: Severe left hip osteoarthritis Procedures Performed: Left total hip arthroplasty Hospital Course: Patient was admitted to the hospital on 05/17/2017 through the preoperative care unit and upon processing was taken to the operating room where her procedure was performed without incident. Patient was awakened in the operating room and then transferred to postoperative care unit and upon recovery from anesthesia was transferred to the orthopedic care unit where she participated well with formal physical therapy. Patient was discharged on 05/19 to her sister's home. Problems: (1) Osteoarthritis of left hip Status: Acute ICD Code: M16.12 Disposition: Discharge to sister and exffjmr-gl-god's home has caregivers. Orthopedic Follow up Plan: In Two Weeks in my clinic (follow-up in 2 weeks [facility] orthopedic clinic with Dr. Jimenez Fitzgerald.) Discharge Instructions: Postop day #1 from left total hip arthroplasty performed on 05/17/[address] Jimenez Fitzgerald. Continue weightbearing as tolerated on the left lower extremity using front wheeled walker. Use posterior hip precautions. Continue formal physical therapy for mobility, gait and safety. Use posterior hip precautions. Continue by mouth pain medication as needed in the form of Roxicodone 5-10 mg every 4-6 hours with Vistaril if needed. Continue Xarelto 10 mg daily 35 days postop for DVT prophylaxis. Ice the left hip as needed for comfort. Change dressing every 1-2 days as needed if soiled or loosening. The ends of the island dressings adhesive may be trimmed off to allow air circulation to the wound to prevent maceration. Keep dressing otherwise clean dry and intact. Steri-Strips will be changed at 2 week visit. Nursing please send patient home with 4 additional large island dressings and 3 flushed syringes on discharge. Nursing maintain abduction wedge between the knees at all times while patient is in bed. At Dr. Jimenez Fitzgerald's request patient will be followed daily by orthopedics while in-house. Follow-up in 2 weeks at [facility] orthopedic clinic with Dr. Jimenez Fitzgerald for wound check and suture removal with new Steri-Strips. Follow-up in 6 weeks at [facility] orthopedic clinic with Dr. Jimenez Fitzgerald with AP pelvis and left crosstable lateral hip x-rays on arrival. Patient indicates she refuses discharg to [facility] facility secondary to a bad experience. I have encouraged her to participate fully with formal physical therapy while in-house for maximum mobility and safety. Discharge patient to home today today in late afternoon when her right is available on 05/19/2017. Patient will go to her sister and [id number]-oz-brc's home who will affect his caregivers postoperatively. Management Plan: Patient will be seen at 2 weeks, 6 weeks and 12 weeks postoperatively. Patient will be seen when necessary in the interim. Albuterol HFA (Proair HFA) 8.5 Gm Hfa.aer.ad 2 PUFFS INHALATION Q4H PRN PRN For Shortness of Breath Calcium Carbonate/Vitamin D3 (Calcium + Vitamin D Tablet) 1 Each Tablet 1 EACH PO BID Cyclobenzaprine (Cyclobenzaprine) 10 Mg Tablet 10 MG PO DAILY PRN PRN Spasm Cyclobenzaprine (Cyclobenzaprine) 10 Mg Tablet 20 MG PO HS PRN PRN Spasm Duloxetine (Duloxetine) 30 Mg Capsule.dr 30 MG PO DAILY Fluticasone/Salmeterol (Advair 100-50 Diskus) 60 Puffs/Inh Disk 1 PUFFS IH BID Hydroxyzine Pamoate (HydrOXYzine Pamoate) 25 Mg Capsule 25 MG PO Q6H PRN PRN For Spasm and/or Restlessness Levothyroxine (Levothyroxine) 50 Mcg Tablet 50 MCG PO DAILY Loratadine ODT (Claritin ODT) 5 Mg Tablet 10 MG PO DAILY Magnesium Oxide (Magnesium) 250 Mg Tablet 250 MG PO HS Metformin (Metformin) 500 Mg Tablet 500 MG PO BID Multivitamin (Multi Vitamin Daily) 1 Each Tablet 1 EACH PO DAILY Omeprazole (Omeprazole) 40 Mg Capsule.dr 40 MG PO DAILY Oxybutynin Chloride ER (Oxybutynin Chloride ER) 10 Mg Tab.er.24 10 MG PO HS Polyethylene Glycol 3350 (Miralax) 17 Gm Powd.pack 17 GM PO DAILY Rivaroxaban (Xarelto) 10 Mg Tablet 10 MG PO DAILY Sulfasalazine (Sulfasalazine) 500 Mg Tablet 500 MG PO BID Valacyclovir (Valacyclovir) 1,000 Mg Tablet 1,000 MG PO DAILYWD PRN PRN breakout oxyCODONE (oxyCODONE) 5 Mg Tablet 5-10 MG PO Q4H PRN PRN For Severe Pain Wellington Peralta PA-C May 19, 2017 08:12
[2017-05-19] MEDS: Senna-Docusate 8.6-50 mg Tablet PO SCH (08:17)
[2017-05-19] MEDS: Fluticasone-Salmeterol 100-50 Inhaler INHALATION SCH (08:17)
[2017-05-19] MEDS: Sulfasalzine 500 mg Tablet PO SCH (08:18)
[2017-05-19] MEDS: Multivit-Miner-Folic Acid-Iron Tablet PO SCH (08:30)
[2017-05-19] MEDS: Pantoprazole 40 mg ER24 Tablet PO SCH (08:43)
[2017-05-19] MEDS: DULoxetine 30 mg DR Capsule PO SCH (08:44)
[2017-05-19] MEDS: Polyethylene Glycol (PEG) 17 Gm Powder PO PRN (08:45)
--- NOTE | 2017-05-19 10:38 | NUR ---
Social Work: Readiness for Discharge/Multi-Disciplinary Rounds D: EMR reviewed. Pt is on day 2 of hospitalization. Per rounds, pt is medically stable and cleared for discharge home today, no needs identified - no MD orders received. PT has cleared pt to go home with outpt PT. Pt anticipated to discharge home with sister to transport via POV. SW will continue to follow. A: Pt who is independent at baseline. P: Pt anticipated to discharge home with sister to transport via POV. Per MD, pt does not have discharge needs at this time. SW will continue to follow. THAO Dolan
--- NOTE | 2017-05-19 11:59 | NUR ---
Social Work: Discharge D: EMR reviewed. Pt is on day 2 of hospitalization. Per rounds, pt is medically stable and cleared for discharge home today, no needs identified - no MD orders received. PT has cleared pt to go home with outpt PT. Pt anticipated to discharge home with sister to transport via POV. SW will continue to follow. A: Pt who is independent at baseline. P: Pt to discharge home with sister to transport via POV. Per MD, pt does not have discharge needs at this time. SW will continue to follow. THAO Dolan
[2017-05-19 12:09] VITALS: BP 110/67; PULSE 89; RESP 18; O2SAT 92
--- NOTE | 2017-05-19 15:22 | NUR ---
Pain Patient continues to have some pain to the left hip this shift. Patient states that pain is well controlled with ordered pain medications. Patient ambulating in salgado and in room using FWW. Hourly rounding continues.
--- NOTE | 2017-05-19 18:35 | NUR ---
Resumed Care/Discharge I resumed care to this Pt. at ~1630 and did not see her until 1715. Pt. discharge to home with sister and took all her belongings from room 1020 [facility]. Pt. was given educational material on new prescriptions and went over dressing care, hygiene, activity, and assisted device. Pt. understood all and stated she will do what was instructed by MD. Pt. was also instructed about follow up care 2 weeks, 6 weeks, and [address] Jimenez Fitzgerald. Pt. understood and stated she would call and make appointments accordingly.
== END 2017-05-19 18:05 | disposition home or self-care (01) | DRG 470 ==
LOC: SAS 06:48 → OSC 15:46
PROVIDERS: ADMIT Orthopaedic Surgery; ATTEND Orthopaedic Surgery
PROC: 0SRB02A Replacement of Left Hip Joint with Metal on Polyethylene Synthetic Substitute, Uncemented, Open Approach (ICD-10-PCS; principal; 2017-05-17 10:00)
DX: M16.12 Unilateral primary osteoarthritis, left hip (principal); E11.9 Type 2 diabetes mellitus without complications; Z79.84 Long term (current) use of oral hypoglycemic drugs